=== PATIENT | male | born 1970 | race Caucasian/White ===

== ENCOUNTER 2019-01-14 23:31 | Observation (INO) | payer SELFPAY ==
[~2019-01-14] VITALS: Ht 175.3 cm; Wt 65.4 kg
[2019-01-14] MEDS ORDERED: NS IV 1000 ML 1,000 ML IV STA (23:53)
--- NOTE | 2019-01-14 23:58 | ED Chest Pain ---
General Chief Complaint: Chest Pain Stated Complaint: HYPERTENSION/CHEAT PAIN Nursing Triage Note: Patient states that he began having chest pain about 2 days ago but it has progressively gotten worse the last couple of hours, rating it at a 9. Patient denies radiation and denies that the pain gets worse with coughing or palpation. Patient describes the pain as pressure in nature. Patient had 1 nitro and 50 Fentanyl IM on EMS. Patient denies any relief with those medications. Patient is a poor historian and cannot tell me if he has any cardiac history other than HTN. Nursing Sepsis Screen: No Definite Risk History of Present Illness Date Seen by Provider: January 14, 2019 Time Seen by Provider: 23:44 This is a 48-year-old man who completed to 2 days of constant substernal nonradiating chest pain. He thinks he may have had a stress test at some point in the past but not recently. He says that he is supposed to take 14 medications but he does not know the names, he also states that he doesn't take any of these medications. He does admit a history of diabetes and hypertension. He does smoke cigarettes. He denies any cocaine or other stimulant use. The pain is pressure-like. He is not short of breath. He does not feel lightheaded. He had no relief of his pain with nitroglycerin or fentanyl on the way to the ER as given by EMS. Does have documented hx of hepatic vein thrombosis and rx for xarelto, but denies leg swelling, no hemoptysis, no recent travel or immobilization, no hormonal use. Allergies and Home Medications Allergies Coded Allergies: No Known Drug Allergies (Unverified , 01/14/19) Patient Home Medication List Home Medication List Reviewed: Yes Review of Systems Review of Systems Constitutional: no symptoms reported EENTM: No Symptoms Reported Respiratory: No Symptoms Reported Cardiovascular: See HPI Gastrointestinal: No Symptoms Reported Genitourinary: No Symptoms Reported Musculoskeletal: no symptoms reported Skin: no symptoms reported Psychiatric/Neurological: No Symptoms Reported Endocrine: No Symptoms Reported Hematologic/Lymphatic: No Symptoms Reported Past Vqaeemt-Lbghqq-Gquzqf Hx Past Med/Social Hx: Reviewed Nursing Past Med/Soc Hx Patient Social History Alcohol Use: Occasionally Uses Recreational Drug Use: No Smoking Status: Current Everyday Smoker Type Used: Cigarettes 2nd Hand Smoke Exposure: Yes Recent Foreign Travel: No Contact w/Someone Who Travel: No Recent Infectious Disease Expo: No Recent Hopitalizations: No Physical Abuse: No Sexual Abuse: No Mistreated: No Fear: No Seasonal Allergies Seasonal Allergies: No Past Medical History Surgeries: No Respiratory: No Cardiac: Yes Hypertension Neurological: No Genitourinary: No Gastrointestinal: No Musculoskeletal: No Endocrine: Yes Diabetes, Non-Insulin dep HEENT: No Cancer: No Psychosocial: No Integumentary: No Blood Disorders: No Physical Exam Vital Signs Vital Signs - First Documented 01/14/19 23:31 Temp 98.7 Pulse 67 Resp 22 B/P (MAP) 114/72 (86) Pulse Ox 97 O2 Delivery Room Air Capillary Refill : Less Than 3 Seconds Height, Weight, BMI Height: 5'9.00" Weight: 150lbs. 0oz. [id number]; BMI Method:Stated General Appearance: No Apparent Distress HEENT: Moist Mucous Membranes Neck: Supple; No JVD Respiratory: Lungs Clear Cardiovascular: Regular Rate, Rhythm, No Edema, Normal Peripheral Pulses Gastrointestinal: Non Tender, Soft Extremity: Non Tender Neurologic/Psychiatric: Alert, No Motor/Sensory Deficits Skin: Warm/Dry Progress/Results/Core Measures Results/Orders Lab Results Laboratory Tests Test 01/14/19 23:35 01/15/19 00:46 01/15/19 02:44 01/15/19 03:07 Range/Units White Blood Count 8.8 4.3-11.0 10^3/uL Red Blood Count 4.51 4.35-5.85 10^6/uL Hemoglobin 11.6 L 13.3-17.7 G/DL Hematocrit 36 L 40-54 % Mean Corpuscular Volume 80 80-99 FL Mean Corpuscular Hemoglobin 26 25-34 PG Mean Corpuscular Hemoglobin Concent 32 32-36 G/DL Red Cell Distribution Width 16.2 H 10.0-14.5 % Platelet Count 322 130-400 10^3/uL Mean Platelet Volume 10.4 7.4-10.4 FL Prothrombin Time 12.7 12.2-14.7 SEC INR Comment 0.9 0.8-1.4 Activated Partial Thromboplast Time 29 24-35 SEC Sodium Level 132 L 135-145 MMOL/L Potassium Level 5.2 H 3.6-5.0 MMOL/L Chloride Level 88 L 98-107 MMOL/L Carbon Dioxide Level 20 L 21-32 MMOL/L Anion Gap 24 H 5-14 MMOL/L Blood Urea Nitrogen 9 7-18 MG/DL Creatinine 0.61 0.60-1.30 MG/DL Estimat Glomerular Filtration Rate > 60 BUN/Creatinine Ratio 15 Glucose Level 532 *H 70-105 MG/DL Calcium Level 9.0 8.5-10.1 MG/DL Corrected Calcium 8.8 8.5-10.1 MG/DL Total Bilirubin 0.3 0.1-1.0 MG/DL Aspartate Amino Transf (AST/SGOT) 20 5-34 U/L Alanine Aminotransferase (ALT/SGPT) 20 0-55 U/L Alkaline Phosphatase 132 40-136 U/L Troponin T 6 <=15 NG/L Pro-B-Type Natriuretic Peptide 113.5 H <75.0 PG/ML Total Protein 6.9 6.4-8.2 GM/DL Albumin 4.2 3.2-4.5 GM/DL Glucometer 448 *H 282 H 70-110 MG/DL Urine Color PALE YELLOW Urine Clarity CLEAR Urine pH 6.0 5-9 Urine Specific [place] 1.010 L 1.016-1.022 Urine Protein NEGATIVE NEGATIVE Urine Glucose (UA) 3+ H NEGATIVE Urine Ketones 3+ H NEGATIVE Urine Nitrite NEGATIVE NEGATIVE Urine Bilirubin NEGATIVE NEGATIVE Urine Urobilinogen 0.2 NORMAL MG/DL Urine Leukocyte Esterase NEGATIVE NEGATIVE Urine RBC (Auto) NEGATIVE NEGATIVE My Orders Orders - TOBY DURANT T DO Chest 1 View Ap/Pa Only (01/14/19 23:41) Ekg Tracing (01/14/19 23:41) Comprehensive Metabolic Panel (01/14/19 23:41) Protime With Inr (01/14/19 23:41) Partial Thromboplastin Time (01/14/19 23:41) Monitor-Rhythm Ecg Trace Only (01/14/19 23:41) Ed Iv/Invasive Line Start (01/14/19 23:41) Cbc No Diff (01/14/19 23:41) Troponin T (01/14/19 23:41) Probnp Fs (01/14/19 23:41) Lidocaine 2% Viscous 15 Ml (Xylocaine Vi (01/15/19 00:00) Antacid Suspension (Mylanta Suspension (01/15/19 00:00) Ns Iv 1000 Ml (Sodium Chloride 0.9%) (01/14/19 23:53) Ct Angio Chest W (01/15/19 00:13) Hydromorphone Injection (Dilaudid Inject (01/15/19 00:26) Insulin (Regular) Human (Humulin R (Per (01/15/19 01:56) Iohexol Injection (Omnipaque 350 Mg/Ml 1 (01/15/19 02:15) Received Contrast (Hold Metformin- Contr (01/15/19 02:15) Ns (Ivpb) (Sodium Chloride 0.9% Ivpb Bag (01/15/19 02:15) Urinalysis Dipstick Only (01/15/19 02:39) Fentanyl Injection (Sublimaze Injection (01/15/19 03:29) Medications Given in ED Current Medications Medications Dose Ordered Sig/Yoselin Route Start Time Stop Time Status Last Admin Dose Admin Al Hydrox/Mg Hydrox/Simethicone 30 ml ONCE ONCE PO 01/15/19 00:00 01/15/19 00:01 DC 01/15/19 00:00 30 ML Iohexol 100 ml ONCE ONCE IV 01/15/19 02:15 01/15/19 02:16 DC 01/15/19 02:25 100 ML Lidocaine HCl 30 ml ONCE ONCE PO 01/15/19 00:00 01/15/19 00:01 DC 01/15/19 00:00 30 ML Sodium Chloride 100 ml ONCE ONCE IV 01/15/19 02:15 01/15/19 02:16 DC 01/15/19 02:25 100 ML Vital Signs/I&O 01/14/19 01/14/19 23:31 23:31 Temp 98.7 Pulse 67 Resp 22 B/P (MAP) 114/72 (86) Pulse Ox 97 O2 Delivery Room Air Room Air Blood Pressure Mean: 86 Progress Progress Note : Progress Note This is a 48-year-old man with a history of IDDM, alcohol abuse, hepatic vein thrombosis, candidal esophagitis, noncompliant with his medications, and a listed dx of chronic chest pain, here with 2 days of constant substernal nonradiating chest pain. He had no response to nitroglycerin or fentanyl. He had no improvement w GI cocktail. He says that he only had minimal improvement after 1 mg of IV Dilaudid. I am obtaining CTA of the chest to r/o PE, also will have better sensitivity for mediastinitis than CXR which is grossly negative and can also r/o dissection although his presentation is not particularly suggestive of either of these entities. Lab is having technical issue which is delaying workup for all ED patients, we are attempting to have a install technician bring blood to [facility] for processing. EKG : Comment 2335: Sinus rhythm rate of 66. Left axis deviation. Nonspecific abnormal contour to the T-wave in lead 3, no other ST or T-wave abnormalities. Diagnostic Imaging Diagonstic Imaging: Xray Comments EP interpretation: Trachea is midline, no obvious bony or soft tissue abnormalities, no pneumothoraces or pleural effusions, cardiomediastinal silhouette is within normal limits, there appears to be some increased opacity near the left hilum Reviewed: Reviewed by Me Departure Impression Primary Impression: Chest pain Qualified Codes: R07.2 - Precordial pain Additional Impressions: Noncompliance with medication regimen DKA (diabetic ketoacidosis) Disposition: 09 ADMITTED INPATIENT Condition: Stable Transfer Time Spoke to Accepting Phy: 03:53 Transfer Facility: Dr Eubanks at [facility] Method of Transfer: EMS Departure-Patient Inst. Referrals: NO,LOCAL PHYSICIAN (PCP/Family) Primary Care Physician TOBY DURANT DO January 14, 2019 23:58
[2019-01-15] MEDS ORDERED: ANTACID SUSP 30 ML UDC (MYLANTA) PO ONE
[2019-01-15] MEDS ORDERED: LIDOCAINE 2% VISCOUS 15 ML UDC PO ONE
[2019-01-15 00:22] LABS: HEMOGLOBIN 11.6 G/DL (13.3-17.7); WHITE BLOOD COUNT 8.8 10^3/uL (4.3-11.0)
[2019-01-15 00:23] LABS: MEAN PLATELET VOLUME 10.4 FL (7.4-10.4); RED CELL DISTRIBUTION WIDTH 16.2 % (10.0-14.5)
[2019-01-15 00:24] LABS: INR 0.9 (0.8-1.4); PROTHROMBIN TIME PATIENT 12.7 SEC (12.2-14.7)
[2019-01-15] MEDS ORDERED: HYDROmorphone 2 MG/ML VIAL (DILAUDID) IV STA (00:26)
[2019-01-15 01:37] LABS: BUN/CREATININE RATIO 15; CARBON DIOXIDE 20 MMOL/L (21-32); CHLORIDE 88 MMOL/L (98-107); CREATININE SERUM 0.61 MG/DL (0.60-1.30); GFR ESTIMATED > 60; POTASSIUM 5.2 MMOL/L (3.6-5.0); SODIUM 132 MMOL/L (135-145)
[2019-01-15 01:39] LABS: GLUCOSE 532 MG/DL (70-105)
[2019-01-15 01:40] LABS: ALANINE AMINOTRANSFERASE 20 U/L (0-55); ALBUMIN 4.2 GM/DL (3.2-4.5); ALKALINE PHOSPHATASE 132 U/L (40-136); BILIRUBIN,TOTAL 0.3 MG/DL (0.1-1.0); TOTAL PROTEIN 6.9 GM/DL (6.4-8.2)
[2019-01-15] MEDS ORDERED: inSUlin (REGULAR) HUMAN 1 UNIT/0.01 ML (CHARGE PER UNIT) IV STA (01:56)
[2019-01-15] MEDS ORDERED: IOHEXOL 350 MG/ML 100 ML (OMNIPAQUE 350) VIAL IV ONE (02:15)
[2019-01-15] MEDS ORDERED: NS 100 ML (IVPB) BAG IV ONE (02:15)
[2019-01-15] MEDS ORDERED: HOLD METFORMIN - RECEIVED CONTRAST 20 ML VIAL IV SCH (02:15)
[2019-01-15 02:58] LABS: CLARITY,URINE CLEAR; COLOR,URINE PALE YELLOW
[2019-01-15 02:59] LABS: BILIRUBIN,URINE NEGATIVE (NEGATIVE); GLUCOSE, URINE (UA) 3+ (NEGATIVE); KETONES,URINE 3+ (NEGATIVE); NITRITE,URINE NEGATIVE (NEGATIVE); PROTEIN,URINE NEGATIVE (NEGATIVE); UROBILINOGEN,URINE 0.2 MG/DL (NORMAL)
[2019-01-15 03:00] LABS: LEUKOCYTE ESTERASE ,URINE NEGATIVE (NEGATIVE)
[2019-01-15] MEDS ORDERED: fentaNYL INJECTION 100 MCG/2 ML AMP IVP STA (03:29)
--- NOTE | 2019-01-15 06:05 | NUR ---
JERRY ROBERTS admitted to room 430-1, with an admitting diagnosis of CHEST PAIN AND DKA, on 01/15/19 from [facility] via EMS, accompanied by EMS STAFF.JERRY ROBERTS introduced to surroundings, call light, bed controls, phone, TV, temperature control, lights, meal times, smoking policy, visitor policy, side rail policy, bathrooms and showers. Patient Rights given to patient in the handbook. JERRY ROBERTS verbalizes understanding that [facility] is not responsible for the loss or damage to any personal effects or valuables that are kept in the patients posession during their hospitalization.
[2019-01-15 06:14] VITALS: BP 114/65
--- NOTE | 2019-01-15 06:21 | Diagnostic Imaging Report ---
INDICATION: Chest pain COMPARISON: None FINDINGS: Single view of the chest demonstrates cardiac enlargement with interstitial changes bilaterally. This may represent central vascular congestion or chronic interstitial lung disease. There is some hyperinflation likely COPD. There is no pneumothorax or large effusion. Osseous structures are age-appropriate. IMPRESSION: 1. Cardiac enlargement with mild chronic appearing interstitial changes bilaterally. Followup recommended. 2. COPD Dictated by: Dictated on workstation # [id number]
--- NOTE | 2019-01-15 06:36 | NUR ---
THIS RN CALLED DR. BLACKWELL IN REGARDS TO THE PT REQUESTING MEDICATION FOR CHEST PAIN RATED AT AN 8 ON A NUMERIC SCALE. ORDERS RECEIVED FOR TYLENOL 650 MG PO PRN Q6H. ORDERS READ BACK AND VERIFIED.
[2019-01-15] MEDS: ACETAMINOPHEN 325 MG TABLET PO PRN ×4 (06:46→22:31)
[2019-01-15 07:10] LABS: BASOPHILS # (AUTO) 0.1 10^3/uL (0.0-0.1); BASOPHILS % (AUTO) 1 % (0-10); EOSINOPHILS # (AUTO) 0.3 10^3/uL (0.0-0.3); EOSINOPHILS % (AUTO) 3 % (0-10); HEMATOCRIT 37 % (40-54); HEMOGLOBIN 12.2 G/DL (13.3-17.7); LYMPHOCYTES # (AUTO) 3.2 X 10^3 (1.0-4.0); LYMPHOCYTES % (AUTO) 33 % (12-44); MEAN CORPUSCULAR HEMOGLOBIN 26 PG (25-34); MEAN CORPUSCULAR HGB CONC 33 G/DL (32-36); MEAN CORPUSCULAR VOLUME 78 FL (80-99); MEAN PLATELET VOLUME 10.1 FL (7.4-10.4); MONOCYTES # (AUTO) 0.6 X 10^3 (0.0-1.0); MONOCYTES % (AUTO) 7 % (0-12); NEUTROPHILS # (AUTO) 5.5 X 10^3 (1.8-7.8); NEUTROPHILS % (AUTO) 57 % (42-75); PLATELET COUNT 288 10^3/uL (130-400); RED CELL DISTRIBUTION WIDTH 16.7 % (10.0-14.5); WHITE BLOOD COUNT 9.7 10^3/uL (4.3-11.0)
[2019-01-15] MEDS: NS IV 1000 ML 1,000 ML IV SCH ×2 (07:28→15:47)
--- NOTE | 2019-01-15 07:32 | Diagnostic Imaging Report ---
PROCEDURE: CT angiography of the chest with contrast. TECHNIQUE: Multiple contiguous axial images were obtained through the chest after uneventful bolus administration of intravenous contrast. 2D reconstructed CTA MIP acquisitions were also performed. Auto Exposure Controls were utilized during the CT exam to meet ALARA standards for radiation dose reduction. INDICATION: Shortness of breath. COMPARISON: None. FINDINGS: The heart size is normal. The course and caliber of the thoracic aorta and pulmonary arteries is normal. There is no pulmonary embolism. There is advanced centrilobular and paraseptal emphysema. Chronic interstitial changes are seen in both bases. No focal infiltrate, nodule or mass is identified. There are some prominent lymph nodes in the hilum bilaterally, likely reactive. There is some abnormal thickening of the mid and distal esophagus. Consider direct visualization. There is no pneumothorax or effusion. Osseous structures are age-appropriate. Visualized upper abdominal solid organs are intact. There are chronic calcific changes of the pancreas, likely chronic pancreatitis. IMPRESSION: 1. No pulmonary embolism identified. 2. Abnormal thickening of the mid and distal esophagus. Consider direct visualization. 3. Advanced centrilobular and paraseptal emphysema. 4. Chronic calcific pancreatitis. Dictated by: Dictated on workstation # [id number]
[2019-01-15 07:34] LABS: ALANINE AMINOTRANSFERASE 24 U/L (0-55); ALBUMIN 3.9 GM/DL (3.2-4.5); ALKALINE PHOSPHATASE 131 U/L (40-136); BILIRUBIN,TOTAL 0.3 MG/DL (0.1-1.0); BUN/CREATININE RATIO 9; CALCIUM 9.2 MG/DL (8.5-10.1); CARBON DIOXIDE 18 MMOL/L (21-32); CHLORIDE 100 MMOL/L (98-107); CREATININE SERUM 0.92 MG/DL (0.60-1.30); GFR ESTIMATED > 60; GLUCOSE 243 MG/DL (70-105); MAGNESIUM 2.1 MG/DL (1.8-2.4); POTASSIUM 3.9 MMOL/L (3.6-5.0); SODIUM 134 MMOL/L (135-145); TOTAL PROTEIN 6.7 GM/DL (6.4-8.2)
[2019-01-15] MEDS: NITROGLYCERIN 0.4 MG SL TABS BTL 25'S SL PRN ×2 (07:38→11:33)
[2019-01-15 07:42] LABS: ABG BASE EXCESS -0.4 MMOL/L (-2.5-2.5); ABG OXYGEN SATURATION 22 % (94-100); ABG PCO2 47 MMHG (35-45); ABG TCO2 26.1 MMOL/L (21.0-31.0)
[2019-01-15 07:46] LABS: ABG PH 7.34 (7.37-7.43); ABG PO2 19 MMHG (79-93); ALLENS TEST YES-POS; INSPIRED O2 ROOM AIR; PATIENT TEMP 98.4; VENTILATOR NO
[2019-01-15 08:16] VITALS: BP 126/78
[2019-01-15] MEDS: fentaNYL INJECTION 100 MCG/2 ML AMP IVP PRN ×3 (08:17→19:33)
--- NOTE | 2019-01-15 09:28 | NUR ---
PATIENT STATES HE IS SUPPOSED TO TAKE 14 MEDICATIONS BUT HAS NOT TAKEN THEM FOR A FEW MONTHS DUE TO NOT BEING ABLE TO GET THEM. HE STATES HE GOT THEM AT SOME [facility] BUT HE CAN'T REMEMBER. I ASKED WHAT PHARMACY HE WOULD LIKE TO USE GOING [place]WARD AND HE STATES IT DOESN'T MATTER BECAUSE HE CAN NOT GET MEDS, HE IS NOT FAMILIAR WITH [facility] AND STATES HE DOES NOT EVEN KNOW [facility]. I SET THE PROFILE TO NO MEDS AND LEFT THE PHARMACY BLANK FOR NOW.
[2019-01-15] MEDS ORDERED: PANTOPRAZOLE 40 MG (PROTONIX) TAB PO NR (10:00)
--- NOTE | 2019-01-15 10:25 | Consultation-Cardiology ---
HPI-Cardiology Cardiology Consultation Date of Consultation 01/15/19 Date of Admission Time Seen by Provider: 10:20 Indication: chest pain HPI 48 years old gentleman with history of diabetes mellitus, hypertension, tobaccoism, noncompliant with medication, reported that he is supposed to be taking up to 14 medication but does not take any medication because he cannot afford it and he does not follow up with any physician. Has been having chest pain which has been persistent for few weeks, became worse recently and went to [facility] and was transferred here, pain did not relieve with nitroglycerin, felt better after fentanyl. Still having discomfort in his chest, not reproducible. No palpitation. No syncope or near syncopal episodes. No claudication. Home Medications & Allergies Allergies: Coded Allergies: No Known Drug Allergies (Unverified , 01/14/19) Home Medication List Reviewed: Yes [id number]-Mpwgtz Hx Patient Social History Marital Status: single Employed/Student: unemployed Alcohol Use: Occasionally Uses Recreational Drug Use: No Smoking Status: Current Everyday Smoker Type Used: Cigarettes 2nd Hand Smoke Exposure: Yes Recent Foreign Travel: No Recent Infectious Disease Expo: No Recent Hopitalizations: No Past Medical History Discussed below Family Medical History Family Medical Hx Noncontributory Review of Systems Constitutional: no symptoms reported, see HPI EENTM: see HPI, no symptoms reported Respiratory: see HPI; No cough; dyspnea on exertion; No hemoptysis, No orthopnea, No phlegm, No short of breath, No stridor, No wheezing, No other Cardiovascular: see HPI, chest pain; No edema, No Hx of Intervention, No palpitations, No syncope, No vascular heart diseas, No other Gastrointestinal: see HPI, abdominal pain Genitourinary: no symptoms reported, see HPI Musculoskeletal: no symptoms reported, see HPI Skin: no symptoms reported, see HPI Psychiatric/Neurological: No Symptoms Reported, See HPI Reviewed Test Results Reviewed Test Results Lab Laboratory Tests Test 01/14/19 23:35 01/15/19 00:46 01/15/19 02:44 01/15/19 03:07 Range/Units White Blood Count 8.8 4.3-11.0 10^3/uL Red Blood Count 4.51 4.35-5.85 10^6/uL Hemoglobin 11.6 L 13.3-17.7 G/DL Hematocrit 36 L 40-54 % Mean Corpuscular Volume 80 80-99 FL Mean Corpuscular Hemoglobin 26 25-34 PG Mean Corpuscular Hemoglobin Concent 32 32-36 G/DL Red Cell Distribution Width 16.2 H 10.0-14.5 % Platelet Count 322 130-400 10^3/uL Mean Platelet Volume 10.4 7.4-10.4 FL Prothrombin Time 12.7 12.2-14.7 SEC INR Comment 0.9 0.8-1.4 Activated Partial Thromboplast Time 29 24-35 SEC Sodium Level 132 L 135-145 MMOL/L Potassium Level 5.2 H 3.6-5.0 MMOL/L Chloride Level 88 L 98-107 MMOL/L Carbon Dioxide Level 20 L 21-32 MMOL/L Anion Gap 24 H 5-14 MMOL/L Blood Urea Nitrogen 9 7-18 MG/DL Creatinine 0.61 0.60-1.30 MG/DL Estimat Glomerular Filtration Rate > 60 BUN/Creatinine Ratio 15 Glucose Level 532 *H 70-105 MG/DL Calcium Level 9.0 8.5-10.1 MG/DL Corrected Calcium 8.8 8.5-10.1 MG/DL Total Bilirubin 0.3 0.1-1.0 MG/DL Aspartate Amino Transf (AST/SGOT) 20 5-34 U/L Alanine Aminotransferase (ALT/SGPT) 20 0-55 U/L Alkaline Phosphatase 132 40-136 U/L Troponin T 6 <=15 NG/L Pro-B-Type Natriuretic Peptide 113.5 H <75.0 PG/ML Total Protein 6.9 6.4-8.2 GM/DL Albumin 4.2 3.2-4.5 GM/DL Glucometer 448 *H 282 H 70-110 MG/DL Urine Color PALE YELLOW Urine Clarity CLEAR Urine pH 6.0 5-9 Urine Specific [place] 1.010 L 1.016-1.022 Urine Protein NEGATIVE NEGATIVE Urine Glucose (UA) 3+ H NEGATIVE Urine Ketones 3+ H NEGATIVE Urine Nitrite NEGATIVE NEGATIVE Urine Bilirubin NEGATIVE NEGATIVE Urine Urobilinogen 0.2 NORMAL MG/DL Urine Leukocyte Esterase NEGATIVE NEGATIVE Urine RBC (Auto) NEGATIVE NEGATIVE Test 01/15/19 06:54 01/15/19 07:35 01/15/19 09:05 Range/Units White Blood Count 9.7 4.3-11.0 10^3/uL Red Blood Count 4.73 4.35-5.85 10^6/uL Hemoglobin 12.2 L 13.3-17.7 G/DL Hematocrit 37 L 40-54 % Mean Corpuscular Volume 78 L 80-99 FL Mean Corpuscular Hemoglobin 26 25-34 PG Mean Corpuscular Hemoglobin Concent 33 32-36 G/DL Red Cell Distribution Width 16.7 H 10.0-14.5 % Platelet Count 288 130-400 10^3/uL Mean Platelet Volume 10.1 7.4-10.4 FL Neutrophils (%) (Auto) 57 42-75 % Lymphocytes (%) (Auto) 33 12-44 % Monocytes (%) (Auto) 7 0-12 % Eosinophils (%) (Auto) 3 0-10 % Basophils (%) (Auto) 1 0-10 % Neutrophils # (Auto) 5.5 1.8-7.8 X 10^3 Lymphocytes # (Auto) 3.2 1.0-4.0 X 10^3 Monocytes # (Auto) 0.6 0.0-1.0 X 10^3 Eosinophils # (Auto) 0.3 0.0-0.3 10^3/uL Basophils # (Auto) 0.1 0.0-0.1 10^3/uL Sodium Level 134 L 135-145 MMOL/L Potassium Level 3.9 3.6-5.0 MMOL/L Chloride Level 100 98-107 MMOL/L Carbon Dioxide Level 18 L 21-32 MMOL/L Anion Gap 16 H 5-14 MMOL/L Blood Urea Nitrogen 8 7-18 MG/DL Creatinine 0.92 0.60-1.30 MG/DL Estimat Glomerular Filtration Rate > 60 BUN/Creatinine Ratio 9 Glucose Level 243 H 70-105 MG/DL Calcium Level 9.2 8.5-10.1 MG/DL Corrected Calcium 9.3 8.5-10.1 MG/DL Magnesium Level 2.1 1.8-2.4 MG/DL Total Bilirubin 0.3 0.1-1.0 MG/DL Aspartate Amino Transf (AST/SGOT) 19 5-34 U/L Alanine Aminotransferase (ALT/SGPT) 24 0-55 U/L Alkaline Phosphatase 131 40-136 U/L Troponin I < 0.028 < 0.028 <0.028 NG/ML Total Protein 6.7 6.4-8.2 GM/DL Albumin 3.9 3.2-4.5 GM/DL Blood Gas Puncture Site R BRACHIAL Blood Gas Patient Temperature 98.4 Arterial Blood pH 7.34 *L 7.37-7.43 Arterial Blood Partial Pressure CO2 47 H 35-45 MMHG Arterial Blood Partial Pressure O2 19 *L 79-93 MMHG Arterial Blood HCO3 25 23-27 MMOL/L Arterial Blood Total CO2 26.1 21.0-31.0 MMOL/L Arterial Blood Oxygen Saturation 22 L 94-100 % Arterial Blood Base Excess -0.4 -2.5-2.5 MMOL/L Aiden Test YES-POS Blood Gas Ventilator Setting NO Blood Gas Inspired Oxygen ROOM AIR Physical Exam Vital Signs Vital Signs - First Documented 01/14/19 01/15/19 23:31 08:16 Temp 98.7 Pulse 67 Resp 22 B/P (MAP) 114/72 (86) Pulse Ox 97 O2 Delivery Room Air O2 Flow Rate 0.00 Capillary Refill : Less Than 3 Seconds Height, Weight, BMI Height: 5'9.00" Weight: 144lbs. 2.0oz. 65.756830sq; 21.2 BMI Method:Stated General Appearance: No Apparent Distress, WD/WN Eyes: Bilateral Eye Normal Inspection, Bilateral Eye PERRL, Bilateral Eye EOMI HEENT: PERRL/EOMI, TMs Normal, Normal ENT Inspection, Pharynx Normal Neck: Full Range of Motion, Normal Inspection, Non Tender, Supple, Carotid Bruit Respiratory: Chest Non Tender, Lungs Clear, Normal Breath Sounds, No Accessory Muscle Use, No Respiratory Distress Cardiovascular: Regular Rate, Rhythm, No Edema, No Gallop, No JVD, No Murmur, Normal Peripheral Pulses Gastrointestinal: Normal Bowel Sounds, No Organomegaly, No Pulsatile Mass, Non Tender, Soft Back: Normal Inspection, No CVA Tenderness, No Vertebral Tenderness Extremity: Normal Capillary Refill, Normal Inspection, Normal Range of Motion, Non Tender, No Calf Tenderness, No Pedal Edema Neurologic/Psychiatric: Alert, Oriented x3, No Motor/Sensory Deficits, Normal Mood/Affect Skin: Normal Color, Warm/Dry Lymphatic: No Adenopathy A/P-Cardiology Admission Diagnosis Chest pain DKA Hypertension Tobaccoism Assessment/Plan Chest pain nonspecific etiology, atypical in presentation, unlikely to be cardiac, responsive only to fentanyl. No EKG changes, cardiac enzymes were negative. I reassured him at this time, instructed him on starting aspirin and planning to evaluate stress test as an outpatient. Diabetes mellitus, DKA, blood sugar was over 400 on arrival, currently around 200, managed by primary care physician. Tobaccoism, active smoker, educated on smoking cessation Occasional alcohol use, educated on avoiding alcohol History of marijuana use. Educated on avoiding illicit drug use. Hypertension, patient does not take any medication at home and blood pressure is better at this point. Continue to monitor Musculoskeletal pain, generalized body ache Noncompliance with medication Clinical Quality Measures DVT/VTE Risk/Contraindication: Risk Factor Score Per Nursin RFS Level Per Nursing on Admit: 3=High ANCA CALLOWAY MD January 15, 2019 10:25
[2019-01-15] MEDS ORDERED: inSUlin ASPART (NovoLOG) 1 UNIT/0.01 ML (CHARGE PER UNIT) SC SCH ×2 (11:30→15:45)
[2019-01-15] MEDS ORDERED: inSUlin ASPART (NovoLOG) 1 UNIT/0.01 ML (CHARGE PER UNIT) SC ONE (11:45)
[2019-01-15 12:00] VITALS: BP 127/86
--- NOTE | 2019-01-15 12:02 | NUR ---
PT. CONT. TO C/O OF CHEST PAIN IN MIDDLE CHEST. STATES " THE NITROGLYCERIN DOES NOT HELP." TYLENOL GIVEN PO FOR CONT. PAIN.
--- NOTE | 2019-01-15 12:49 | History & Physical-Hospitalist ---
History of Present Illness HPI/Chief Complaint The patient is a 48-year-old white male from the [facility]. He presented at the [facility] emergency room. He presented with complaints of a 2 day constant nonradiating chest pain. He reported this came while he was sitting watching TV. It had gotten worse and finally caused him to seek attention by calling the ambulance. He is a very poor or indifferent historian. He has not taken medications in several months. He states that he took 13 or 14 medications previously. He states that he obtained these at discharge from hospitalizations and multiple [facility] facilities including [facility]. He has a history of diabetes and hypertension. He previously used alcohol. He has had several episodes of pancreatitis during the time he was drinking. This goes back a couple of years. 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 He has also been on insulin but has run out of this as well. He reports that his glucometer readings have been consistently in the 500 range. Date Seen 01/15/19 Time Seen by a Provider: 12:45 Attending Physician Elizabeth Eubanks MD PCP No,Local Physician Referring Physician Date of Admission January 15, 2019 at 04:12 Home Medications & Allergies Home Medications Reviewed patient Home Medication Reconciliation performed by pharmacy medication reconciliations electromechanical technician and/or nursing. Patients Allergies have been reviewed. Allergies Allergies Coded Allergies No Known Drug Allergies (Unverified01/14/19) Past Wbxvlsg-Cimlfk-Himpwj Hx Past Med/Social Hx: Reviewed Nursing Past Med/Soc Hx Patient Social History Marrital Status: single Employed/Student: unemployed Alcohol Use: Occasionally Uses Recreational Drug Use: No Smoking Status: Current Everyday Smoker Type Used: Cigarettes 2nd Hand Smoke Exposure: Yes Recent Foreign Travel: No Contact w/other who traveled: No Recent Hopitalizations: No Recent Infectious Disease Expo: No Seasonal Allergies Seasonal Allergies: No Past Medical History Cardiac: Hypertension Neurological: Headaches /Migraines Genitourinary: Renal Failure Gastrointestinal: Gastroesophageal Reflux, Quezada's Esophagus, Pancreatitis Endocrine: Diabetes, Non-Insulin dep History of Blood Disorders: No Review of Systems Constitutional: see HPI EENTM: no symptoms reported Respiratory: cough, dyspnea on exertion Cardiovascular: see HPI, chest pain Gastrointestinal: no symptoms reported Genitourinary: no symptoms reported Musculoskeletal: no symptoms reported Psychiatric/Neurological: No Symptoms Reported, Depressed Physical Exam Physical Exam Vital Signs Vital Signs - First Documented 01/14/19 01/15/19 23:31 08:16 Temp 98.7 Pulse 67 Resp 22 B/P (MAP) 114/72 (86) Pulse Ox 97 O2 Delivery Room Air O2 Flow Rate 0.00 Capillary Refill : Less Than 3 Seconds Height, Weight, BMI Height: 5'9.00" Weight: 144lbs. 2.0oz. [id number]; 21.2 BMI Method:Stated General Appearance: Mild Distress Eyes: Bilateral Eye Normal Inspection HEENT: Normal ENT Inspection Neck: Full Range of Motion, Normal Inspection, Non Tender Respiratory: Chest Non Tender, Lungs Clear, Normal Breath Sounds, No Accessory Muscle Use, No Respiratory Distress Cardiovascular: Regular Rate, Rhythm, No Edema, No Gallop, No JVD, No Murmur, Normal Peripheral Pulses Gastrointestinal: Normal Bowel Sounds, No Organomegaly, No Pulsatile Mass Back: Normal Inspection Extremity: Normal Capillary Refill, Normal Inspection, Normal Range of Motion Neurologic/Psychiatric: Alert, Oriented x3, No Motor/Sensory Deficits, Normal Mood/Affect Skin: Normal Color, Warm/Dry Lymphatic: No Adenopathy Results Results/Procedures Labs Laboratory Tests 01/14/19 23:35 01/15/19 06:54 Patient resulted labs reviewed. Assessment/Plan Admission Diagnosis Admission Status: Observation Assessment and Plan Chest pain atypical for myocardium. 2.untreated diabetes. 3.untreated hypertension. 4.minimum personal involvement in disease treatment Clinical Quality Measures DVT/VTE Risk/Contraindication: Risk Factor Score Per Nursin RFS Level Per Nursing on Admit: 3=High MICAH SHAHID MD January 15, 2019 12:49
--- NOTE | 2019-01-15 13:21 | NUR ---
CM/SS, respond to consult. Rx: Plan is to assist patient for priority Rx with both 340b and PALS assistance. Patient has agreed to get established with [facility] in [place] and unit RN has made his first followup appointment. SUMMARY: Patient was difficult to engage, he told RN he had talked to too many people already and didn't want to talk anymore. Very edgy and sharp with responses so television script writer kept conversation brief. EMR reflects noncompliance to all Rx and suspicion of noncompliance in general to any healthcare assessments or recommendations. Patient stated he got Rx about 3 months ago from the last hospital he was in and he could not recall which hospital it was. He also indicated he has presented to several different hospitals in the recent months. Following for discharge, tentatively tomorrow. Patient indicated he had no ride home, he was encouraged to begin making contacts today for his ride home tomorrow. Unit RN updated intermittently.
[2019-01-15] MEDS ORDERED: INSU100I29 SQ (13:38)
[2019-01-15] MEDS ORDERED: INSU100I14 SQ (13:38)
[2019-01-15 15:57] VITALS: BP 117/75
[2019-01-15] MEDS ORDERED: inSUlin (REGULAR) HUMAN 1 UNIT/0.01 ML (CHARGE PER UNIT) ONE (17:09)
[2019-01-15] MEDS ORDERED: KETOROLAC 30 MG/ML VIAL ONE (17:09)
[2019-01-15] MEDS: KETOROLAC 30 MG/ML VIAL IVP PRN ×2 (17:14→23:21)
[2019-01-15] MEDS: inSUlin ASPART (NovoLOG) 1 UNIT/0.01 ML (CHARGE PER UNIT) SC SCH ×2 (17:14→22:02)
[2019-01-15 20:02] VITALS: BP 115/71
--- NOTE | 2019-01-15 22:54 | NUR ---
PT COMPLAINING OF PAIN RATING IT 9 OUT OF 10[address] SPOKE WITH [address]. SHAHID. TELEPHONE ORDERS RECIEVED FOR MYLANTA 30ML Q4HRS PRN FOR PAIN. WILL CARRY OUT ORDERS AND CONTINUE TO MONITOR PT.
[2019-01-16] VITALS: BP 113/68
[2019-01-16] MEDS: ANTACID SUSP 30 ML UDC (MYLANTA) PO PRN ×3 (01:36→11:08)
[2019-01-16] MEDS: fentaNYL INJECTION 100 MCG/2 ML AMP IVP PRN ×3 (01:37→13:16)
[2019-01-16] MEDS: NICOTINE 21 MG (NICODERM) PATCH TD SCH ×2 (03:45→08:07)
[2019-01-16 04:48] VITALS: BP 110/71
[2019-01-16 05:40] LABS: BASOPHILS % (AUTO) 1 % (0-10); EOSINOPHILS # (AUTO) 0.3 10^3/uL (0.0-0.3); EOSINOPHILS % (AUTO) 4 % (0-10); HEMATOCRIT 34 % (40-54); HEMOGLOBIN 11.2 G/DL (13.3-17.7); LYMPHOCYTES # (AUTO) 2.7 X 10^3 (1.0-4.0); LYMPHOCYTES % (AUTO) 42 % (12-44); MEAN CORPUSCULAR HEMOGLOBIN 25 PG (25-34); MEAN CORPUSCULAR HGB CONC 33 G/DL (32-36); MEAN CORPUSCULAR VOLUME 77 FL (80-99); MONOCYTES # (AUTO) 0.7 X 10^3 (0.0-1.0); MONOCYTES % (AUTO) 10 % (0-12); NEUTROPHILS # (AUTO) 2.9 X 10^3 (1.8-7.8); NEUTROPHILS % (AUTO) 44 % (42-75); PLATELET COUNT 252 10^3/uL (130-400); RED CELL DISTRIBUTION WIDTH 16.6 % (10.0-14.5); WHITE BLOOD COUNT 6.6 10^3/uL (4.3-11.0)
[2019-01-16 06:02] LABS: ALANINE AMINOTRANSFERASE 27 U/L (0-55); ALBUMIN 3.5 GM/DL (3.2-4.5); ALKALINE PHOSPHATASE 111 U/L (40-136); BILIRUBIN,TOTAL 0.2 MG/DL (0.1-1.0); BUN/CREATININE RATIO 24; CALCIUM 9.1 MG/DL (8.5-10.1); CARBON DIOXIDE 22 MMOL/L (21-32); CHLORIDE 101 MMOL/L (98-107); GFR ESTIMATED > 60; GLUCOSE 262 MG/DL (70-105); POTASSIUM 4.4 MMOL/L (3.6-5.0); SODIUM 134 MMOL/L (135-145); TOTAL PROTEIN 5.6 GM/DL (6.4-8.2)
[2019-01-16] MEDS: inSUlin ASPART (NovoLOG) 1 UNIT/0.01 ML (CHARGE PER UNIT) SC SCH ×4 (06:43→11:53)
[2019-01-16] MEDS: KETOROLAC 30 MG/ML VIAL IVP PRN ×2 (06:43→12:17)
[2019-01-16 08:00] VITALS: BP 126/82
--- NOTE | 2019-01-16 08:51 | Cardiology Progress Note ---
Subjective Date Seen by Provider: January 16, 2019 Time Seen by Provider: 08:50 Subjective/Events-last exam patient is still having generalized pain and persistent chest pain Review of Systems General: No Chills, No Night Sweats, No Fatigue, No Malaise, No Appetite, No Other HEENT: No Head Aches, No Visual Changes, No Eye Pain, No Ear Pain, No Dysphasia, No Sinus Congestion, No Post Nasal Drip, No Sore Throat, No Other Pulmonary: No Dyspnea, No Cough, No Pleuritic Chest Pain, No Other Cardiovascular: Chest Pain; No: Palpitations, Orthopnea, Paroxysmal Noc. Dyspnea, Edema, Lt Headedness, Other Objective-Cardiology Exam Last Set of Vital Signs Vital Signs Capillary Refill : Less Than 3 Seconds I&O Intake and Output 01/16/19 00:00 Intake Total 5170 ml Output Total 900 ml Balance 4270 ml Intake Oral 3170 ml IV Total 2000 ml Output Urine Total 900 ml # Voids 8 # Bowel Movements 1 Daily Weight Change No No General: Alert, Oriented X3, Cooperative HEENT: Atraumatic, PERRLA Neck: Supple, No JVD, No Thyromegaly Lungs: Clear to Auscultation, Normal Air Movement Heart: Regular Rate, Normal S1, Normal S2, No Murmurs Abdomen: Normal Bowel Sounds, Soft, No Tenderness, No Hepatosplenomegaly, No Masses Extremities: No Clubbing, No Cyanosis, No Edema, Normal Pulses, No Tenderness/Swelling Skin: No Rashes, No Breakdown, No Significant Lesion Neuro: Normal Gait, Normal Speech, Strength at 5/5 X4 Ext, Normal Tone, Sensation Intact Psych/Mental Status: Mental Status NL, Mood NL Results Lab Laboratory Tests 01/16/19 05:20 A/P-Cardiology Admission Diagnosis Chest pain DKA Hypertension Tobaccoism Assessment/Plan Chest pain nonspecific etiology, atypical in presentation, unlikely to be cardiac, responsive only to fentanyl. No EKG changes, cardiac enzymes were negative. I reassured him at this time, instructed him on starting aspirin and planning to evaluate stress test as an outpatient. Diabetes mellitus, DKA, blood sugar was over 400 on arrival, currently around 200, managed by primary care physician. Tobaccoism, active smoker, educated on smoking cessation Occasional alcohol use, educated on avoiding alcohol History of marijuana use. Educated on avoiding illicit drug use. Hypertension, patient does not take any medication at home and blood pressure is better at this point. Continue to monitor Musculoskeletal pain, generalized body ache Noncompliance with medication Clinical Quality Measures DVT/VTE Risk/Contraindication: Risk Factor Score Per Nursin RFS Level Per Nursing on Admit: 3=High ANCA CALLOWAY MD January 16, 2019 08:51
[2019-01-16] MEDS ORDERED: ASPIRIN E.C. 81 MG (ECOTRIN) TAB PO SCH (09:00)
[2019-01-16] MEDS ORDERED: PANTOPRAZOLE 40 MG (PROTONIX) TAB PO SCH (09:00)
[2019-01-16] MEDS: ACETAMINOPHEN 325 MG TABLET PO PRN (11:10)
[2019-01-16 12:43] VITALS: BP 131/80
--- NOTE | 2019-01-16 13:05 | Progress Note-Hospitalist ---
Progress Note Progress Notes/Assess & Plan Date Seen 01/16/19 Time Seen by Provider: 12:59 Assessment & Plan The patient now complains of pain in his belly unlike the chest pain described yesterday. He continues to report that he has been in many regional hospitals over the last 2 years but no one has been able to define his illness. He states he just keeps getting worse. We certainly have no inkling of an illness that would support his analgesic needs. Physical exam: Lungs are clear to auscultation. CV is regular without murmur. Abdomen is soft without pain to palpation. Vital signs are stable. Cardiology has assured that they find no evidence of cardiac disease to explain his pain. Arrangements have been made for transportation including a travel voucher. Arrangements have been made by clinical pharmacology for him to get discounted basil and rapid acting insulin prescriptions. He has an appointment for [facility] tomorrow. Impression: Stated chest pain. No evidence of acute cardiac disease. 2.diabetes mellitus type II insulin requiring. 3.hypertension. Note: the patient is taking none of these medications and has not for some period of time. Plan: Discharge. He is to reestablish management of hypertension and diabetes on the outpatient basis. MICAH SHAHID MD January 16, 2019 13:05
--- NOTE | 2019-01-16 13:25 | Discharge Inst-Simple/Standard ---
Discharge Inst-Standard Discharge Medications New, Converted or Re-Newed RX: Transmitted to Pharmacy Patient Instructions/Follow Up Plan of Care/Instructions/FU: Your insulin order has been E scribed to [facility]. A clinic appointment has been scheduled tomorrow at [facility]. They will need to arrange any pain medications for you. Activity as Tolerated: Yes Goal: Better control of blood pressure, blood sugars, and pain Discharge Diet: ADA Diet Planned Outpatient Orders/Ref. Pneu Vac Indicated: Yes MICAH SHAHID MD January 16, 2019 13:25
[2019-01-16 16:00] VITALS: BP 131/80
--- NOTE | 2019-01-16 16:00 | NUR ---
JERRY ROBERTS demonstrates understanding of discharge instructions and accurately returns instructions upon questioning. Copy of Post-Discharge Instructions given to PT. JERRY ROBERTS is able to manage continuing needs after discharge. Patients belongings returned to PT. Patient discharged from [facility] on 01/16/19 at 1600. JERRY ROBERTS left floor via AMBULATORY, accompanied by STAFF AND ROADWAY TECHNICIAN PER VOUCHER AND SENT TO [facility] WITH VOUCHER FOR MEDICATIONS BEFORE GOING HOME.
--- NOTE | 2019-01-16 16:34 | NUR ---
CM DISCHARGE PLANNING: Patient is dismissing to home today self care. He has indicated that he can not afford his medication et PALS voucher was completed with him so that he can obtain his medications from [facility] at no charge to the patient. He also indicated that he has no support systems at home et will not have a ride to pick him up to go back to [place]. This nurse completed the taxi voucher et had the patient sign. I contacted the taxi service et they confirmed that they will be able to transport to [place]. Primary care nurse Shani notified of above information et Automotive Service AssistantClerk Silverman also aware so that she can call the taxi service when Shani is ready.
--- NOTE | 2019-01-16 17:04 | NUR ---
Pt states he has been in chronic pain for four years and feels that he may "end his own pain" if no one else can give him relief. Pt said he might drop off his dog with his sister, pack a bag and drive away. Pt did not describe a means for harming himself. Offered empathic listening and facilitated free expression of thoughts and feelings. Provided safe and non-judgmental space.
--- NOTE | 2019-01-16 17:11 | NUR ---
Pt states he does not have insurance or financial means to be compliant with medications.
== END 2019-01-16 13:23 | disposition home or self-care (01) ==
LOC: ER FS 23:35 → 4TH 23:36 → UNDOADMOB 01-15 04:12 → UNDODISOB 01-16 16:00
PROVIDERS: ADMIT Internal Medicine; ATTEND Internal Medicine
DX: R07.89 Other chest pain (principal); E11.10 Type 2 diabetes mellitus with ketoacidosis without coma; I10 Essential (primary) hypertension; Z79.4 Long term (current) use of insulin; F17.210 Nicotine dependence, cigarettes, uncomplicated; M79.10 Myalgia, unspecified site; K21.9 Gastro-esophageal reflux disease without esophagitis; K22.70 Barrett's esophagus without dysplasia; Z86.718 Personal history of other venous thrombosis and embolism; Z91.19 Patient's noncompliance with other medical treatment and regimen
CPT/HCPCS: 36415; 36600; 71045; 71275; 80053; 81002; 82805; 82962; 83690; 83735; 83880; 84484; 85025; 85027; 85610; 85730; 93005; 93041; 93306; 96361; 96374; 96375; G0378

== ENCOUNTER 2019-11-22 07:37 | Inpatient (IN) | payer SELFPAY ==
[~2019-11-22] VITALS: Ht 175 cm; Wt 62.9 kg
[~2019-11-22 07:37] MED LIST: INSU100I14 SQ; INSU100I29 SQ
--- OUTSIDE RECORDS SUMMARY | 2019-11-22 07:44 | XMS REPORT | Continuity of Care Document ---
Author Organization Unknown Address Unknown Phone Unavailable Allergies Active Description Code Type Severity Reaction Onset Reported/Identified Relationship to Patient Clinical Status Yes No Known Drug Allergies [id number] Drug Allergy Unknown N/A 01/14/2019 Medications There is no data. Problems Date Dx Coded Attending Type Code Diagnosis Diagnosed By 01/16/2019 SILVIA BLACKWELL MD, Ot E11.10 TYPE 2 DIABETES MELLITUS WITH KETOACIDOS 01/16/2019 SILVIA BLACKWELL MD, Ot F17.210 NICOTINE DEPENDENCE, CIGARETTES, UNCOMPL 01/16/2019 SILVIA BLACKWELL MD, Ot I10 ESSENTIAL (PRIMARY) HYPERTENSION 01/16/2019 SILVIA BLACKWELL MD, Ot K21.9 GASTRO-ESOPHAGEAL REFLUX DISEASE WITHOUT 01/16/2019 SILVIA BLACKWELL MD, Ot K22.70 STOCK'S ESOPHAGUS WITHOUT DYSPLASIA 01/16/2019 SILVIA BLACKWELL MD, Ot M79.10 MYALGIA, UNSPECIFIED SITE 01/16/2019 SILVIA BLACKWELL MD, Ot R07.89 OTHER CHEST PAIN 01/16/2019 SILVIA BLACKWELL MD, Ot Z79.4 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 Procedures There is no data. Results Test Result Range Automated blood complete blood count (he mogram) panel - 01/14/19 23:35 Blood leukocytes automated count (number/volume) 8.8 10*3/uL 4.3-11.0 Blood erythrocytes automated count (number/volume) 4.51 10*6/uL 4.35-5.85 Venous blood hemoglobin measurement (mass/volume) 11.6 g/dL 13.3-17.7 Blood hematocrit (volume fraction) 36 % 40-54 Automated erythrocyte mean corpuscular volume 80 [ foz_us] 80-99 Automated erythrocyte mean corpuscular h emoglobin (mass per erythrocyte) 26 pg 25-34 Automated erythrocyte mean corpuscular h emoglobin concentration measurement (mass/volume) 32 g/dL 32-36 Automated erythrocyte distribution width ratio 16. 2 % 10.0- 14.5 Automated blood platelet count (count/volume) 322 10*3/uL 130-400 Automated blood platelet mean volume measurement 10.4 [foz_us] 7.4-10.4 PT panel in platelet poor plasma by coag ulation assay - 01/14/19 23:35 Prothrombin time (PT) in platelet poor plasma by coagu lation assay 12.7 s 12.2-14.7 INR in platelet poor plasma or blood by coagulation as say 0.9 0.8-1.4 Activated partial thromboplastin time (a PTT) in platelet poor plasma bycoagulation assay - 01/14/19 23:35 Activated partial thromboplastin time (a PTT) in platelet poor plasma bycoagulation assay 29 s 24-35 TROPONIN T - 01/14/19 23:35 TROPONIN T 6 % <=15 PROBNP FS - 01/14/19 23:35 PROBNP FS 113.5 pg/mL <75.0 Comprehensive metabolic panel - 01/14/19 23:35 Serum or plasma sodium measurement (moles/volume) 132 mmol/L 135-145 Serum or plasma potassium measurement (moles/volume) 5.2 mmol/L 3.6-5.0 Serum or plasma chloride measurement (moles/volume) 88 mmol/L 98-107 Carbon dioxide 20 mmol/L 21-32 Serum or plasma anion gap determination (moles/volume) 24 mmol/L 5-14 Serum or plasma urea nitrogen measurement (mass/volume ) 9 mg/dL 7-18 Serum or plasma creatinine measurement (mass/volume) 0.61 mg/dL 0.60-1.30 Serum or plasma urea nitrogen/creatinine mass ratio 15 NRG Serum or plasma creatinine measurement w ith calculation of estimated glomerular filtration rate > NRG Serum or plasma glucose measurement (mass/volume) 532 mg/dL 70-105 Serum or plasma calcium measurement (mass/volume) 9.0 mg/dL 8.5-10.1 Serum or plasma total bilirubin measurement (mass/volu me) 0.3 mg/dL 0.1-1.0 Serum or plasma alkaline phosphatase qing surement (enzymatic activity/volume) 132 U/L 40-136 Serum or plasma aspartate aminotransfera se measurement (enzymatic activity/volume) 20 U/L 5-34 Serum or plasma alanine aminotransferase measurement (enzymatic activity/volume) 20 U/L 0-55 Serum or plasma protein measurement (mass/volume) 6.9 g/dL 6.4-8.2 Serum or plasma albumin measurement (mass/volume) 4.2 g/dL 3.2-4.5 CALCIUM CORRECTED 8.8 mg/dL 8.5-10.1 Capillary blood glucose measurement by g lucometer (mass/volume) - 01/15/19 00:46 Capillary blood glucose measurement by glucometer (mas s/volume) 448 mg/dL 70-110 Automated dipstick urinalysis - 01/15/19 02:44 Urine color determination PALE YELLOW N RG Urine clarity determination CLEAR NR G Urine pH measurement by test strip 6.0 5-9 Specific gravity of urine by test strip 1.010 1.016-1.022 Urine protein assay by test strip, semi-quantitative NEGATIVE NEGATIVE Urine glucose detection by automated test strip 3+ NEGATIVE Erythrocytes detection in urine sediment by light micr oscopy NEGATIVE NEGATIVE Urine ketones detection by automated test strip 3+ NEGATIVE Urine nitrite detection by test strip NEGATIVE NEGATIVE Urine total bilirubin detection by test strip NEGA TIVE NEGATIVE Urine urobilinogen measurement by automated test strip (mass/volume) 0.2 mg/dL NORMAL Urine leukocyte esterase detection by dipstick NEG ATIVE NEGATIVE Capillary blood glucose measurement by g lucometer (mass/volume) - 01/15/19 03:07 Capillary blood glucose measurement by glucometer (mas s/volume) 282 mg/dL 70-110 Complete blood count (CBC) with automate d white blood cell (WBC) differential - 01/15/19 06:54 Blood leukocytes automated count (number/volume) 9.7 10*3/uL 4.3-11.0 Blood erythrocytes automated count (number/volume) 4.73 10*6/uL 4.35-5.85 Venous blood hemoglobin measurement (mass/volume) 12.2 g/dL 13.3-17.7 Blood hematocrit (volume fraction) 37 % 40-54 Automated erythrocyte mean corpuscular volume 78 [ foz_us] 80-99 Automated erythrocyte mean corpuscular h emoglobin (mass per erythrocyte) 26 pg 25-34 Automated erythrocyte mean corpuscular h emoglobin concentration measurement (mass/volume) 33 g/dL 32-36 Automated erythrocyte distribution width ratio 16. 7 % 10.0- 14.5 Automated blood platelet count (count/volume) 288 10*3/uL 130-400 Automated blood platelet mean volume measurement 10.1 [foz_us] 7.4-10.4 Automated blood neutrophils/100 leukocytes 57 % 42-75 Automated blood lymphocytes/100 leukocytes 33 % 12-44 Blood monocytes/100 leukocytes 7 % 0-12 Automated blood eosinophils/100 leukocytes 3 % 0-10 Automated blood basophils/100 leukocytes 1 % 0-10 Blood neutrophils automated count (number/volume) 5.5 10*3 1.8-7.8 Blood lymphocytes automated count (number/volume) 3.2 10*3 1.0-4.0 Blood monocytes automated count (number/volume) 0. 6 10*3 0.0-1.0 Automated eosinophil count 0.3 10*3/uL 0 .0-0.3 Automated blood basophil count (count/volume) 0.1 10*3/uL 0.0-0.1 Comprehensive metabolic panel - 01/15/19 06:54 Serum or plasma sodium measurement (moles/volume) 134 mmol/L 135-145 Serum or plasma potassium measurement (moles/volume) 3.9 mmol/L 3.6-5.0 Serum or plasma chloride measurement (moles/volume) 100 mmol/L 98-107 Carbon dioxide 18 mmol/L 21-32 Serum or plasma anion gap determination (moles/volume) 16 mmol/L 5-14 Serum or plasma urea nitrogen measurement (mass/volume ) 8 mg/dL 7-18 Serum or plasma creatinine measurement (mass/volume) 0.92 mg/dL 0.60-1.30 Serum or plasma urea nitrogen/creatinine mass ratio 9 NRG Serum or plasma creatinine measurement w ith calculation of estimated glomerular filtration rate > NRG Serum or plasma glucose measurement (mass/volume) 243 mg/dL 70-105 Serum or plasma calcium measurement (mass/volume) 9.2 mg/dL 8.5-10.1 Serum or plasma total bilirubin measurement (mass/volu me) 0.3 mg/dL 0.1-1.0 Serum or plasma alkaline phosphatase qing surement (enzymatic activity/volume) 131 U/L 40-136 Serum or plasma aspartate aminotransfera se measurement (enzymatic activity/volume) 19 U/L 5-34 Serum or plasma alanine aminotransferase measurement (enzymatic activity/volume) 24 U/L 0-55 Serum or plasma protein measurement (mass/volume) 6.7 g/dL 6.4-8.2 Serum or plasma albumin measurement (mass/volume) 3.9 g/dL 3.2-4.5 CALCIUM CORRECTED 9.3 mg/dL 8.5-10.1 Magnesium - 01/15/19 06:54 Magnesium 2.1 mg/dL 1.8-2.4 Serum or plasma troponin i.cardiac measu rement (mass/volume) - 01/15/19 06:54 Serum or plasma troponin i.cardiac measurement (mass/v olume) < ng/mL <0.028 Arterial blood gas measurement - 9 07:35 Blood pCO2 47 mm[Hg] 35-45 Blood pO2 19 mm[Hg] 79-93 Arterial blood bicarbonate measurement (moles/volume) 25 mmol/L 23-27 Arterial blood base excess by calculation -0.4 mmo l/L -2.5-2.5 Arterial blood oxygen saturation measurement 22 % 94-100 * Inhaled oxygen flow rate ROOM AIR NRG Arterial blood pH measurement with patient temperature correction 7.34 7.37-7.43 Arterial blood carbon dioxide, total measurement (mole s/volume) 26.1 mmol/L 21.0-31.0 Body site R BRACHIAL NRG Assessment of wrist artery patency prior to arterial p uncture YES-POS NRG Setting of ventilation mode NO NR G Measurement of body temperature 98.4 NRG Serum or plasma troponin i.cardiac measu rement (mass/volume) - 01/15/19 09:05 Serum or plasma troponin i.cardiac measurement (mass/v olume) < ng/mL <0.028 Lipase - 01/15/19 09:05 Lipase 26 U/L 8-78 Capillary blood glucose measurement by g lucometer (mass/volume) - 01/15/19 11:18 Capillary blood glucose measurement by glucometer (mas s/volume) 594 mg/dL 70-110 Capillary blood glucose measurement by g lucometer (mass/volume) - 01/15/19 13:48 Capillary blood glucose measurement by glucometer (mas s/volume) 426 mg/dL 70-110 Serum or plasma troponin i.cardiac measu rement (mass/volume) - 01/15/19 15:30 Serum or plasma troponin i.cardiac measurement (mass/v olume) < ng/mL <0.028 Capillary blood glucose measurement by g lucometer (mass/volume) - 01/15/19 15:36 Capillary blood glucose measurement by glucometer (mas s/volume) 329 mg/dL 70-110 Capillary blood glucose measurement by g lucometer (mass/volume) - 01/15/19 21:09 Capillary blood glucose measurement by glucometer (mas s/volume) 267 mg/dL 70-110 Complete blood count (CBC) with automate d white blood cell (WBC) differential - 01/16/19 05:20 Blood leukocytes automated count (number/volume) 6.6 10*3/uL 4.3-11.0 Blood erythrocytes automated count (number/volume) 4.45 10*6/uL 4.35-5.85 Venous blood hemoglobin measurement (mass/volume) 11.2 g/dL 13.3-17.7 Blood hematocrit (volume fraction) 34 % 40-54 Automated erythrocyte mean corpuscular volume 77 [ foz_us] 80-99 Automated erythrocyte mean corpuscular h emoglobin (mass per erythrocyte) 25 pg 25-34 Automated erythrocyte mean corpuscular h emoglobin concentration measurement (mass/volume) 33 g/dL 32-36 Automated erythrocyte distribution width ratio 16. 6 % 10.0- 14.5 Automated blood platelet count (count/volume) 252 10*3/uL 130-400 Automated blood platelet mean volume measurement 10.0 [foz_us] 7.4-10.4 Automated blood neutrophils/100 leukocytes 44 % 42-75 Automated blood lymphocytes/100 leukocytes 42 % 12-44 Blood monocytes/100 leukocytes 10 % 0-12 Automated blood eosinophils/100 leukocytes 4 % 0-10 Automated blood basophils/100 leukocytes 1 % 0-10 Blood neutrophils automated count (number/volume) 2.9 10*3 1.8-7.8 Blood lymphocytes automated count (number/volume) 2.7 10*3 1.0-4.0 Blood monocytes automated count (number/volume) 0. 7 10*3 0.0-1.0 Automated eosinophil count 0.3 10*3/uL 0 .0-0.3 Automated blood basophil count (count/volume) 0.0 10*3/uL 0.0-0.1 Comprehensive metabolic panel - 01/16/19 05:20 Serum or plasma sodium measurement (moles/volume) 134 mmol/L 135-145 Serum or plasma potassium measurement (moles/volume) 4.4 mmol/L 3.6-5.0 Serum or plasma chloride measurement (moles/volume) 101 mmol/L 98-107 Carbon dioxide 22 mmol/L 21-32 Serum or plasma anion gap determination (moles/volume) 11 mmol/L 5-14 Serum or plasma urea nitrogen measurement (mass/volume ) 19 mg/dL 7-18 Serum or plasma creatinine measurement (mass/volume) 0.80 mg/dL 0.60-1.30 Serum or plasma urea nitrogen/creatinine mass ratio 24 NRG Serum or plasma creatinine measurement w ith calculation of estimated glomerular filtration rate > NRG Serum or plasma glucose measurement (mass/volume) 262 mg/dL 70-105 Serum or plasma calcium measurement (mass/volume) 9.1 mg/dL 8.5-10.1 Serum or plasma total bilirubin measurement (mass/volu me) 0.2 mg/dL 0.1-1.0 Serum or plasma alkaline phosphatase qing surement (enzymatic activity/volume) 111 U/L 40-136 Serum or plasma aspartate aminotransfera se measurement (enzymatic activity/volume) 39 U/L 5-34 Serum or plasma alanine aminotransferase measurement (enzymatic activity/volume) 27 U/L 0-55 Serum or plasma protein measurement (mass/volume) 5.6 g/dL 6.4-8.2 Serum or plasma albumin measurement (mass/volume) 3.5 g/dL 3.2-4.5 CALCIUM CORRECTED 9.5 mg/dL 8.5-10.1 Capillary blood glucose measurement by g lucometer (mass/volume) - 01/16/19 05:33 Capillary blood glucose measurement by glucometer (mas s/volume) 274 mg/dL 70-110 Capillary blood glucose measurement by g lucometer (mass/volume) - 01/16/19 10:50 Capillary blood glucose measurement by glucometer (mas s/volume) 110 mg/dL 70-110 CRP - 01/18/19 10:42 C-REACTIVE PROTEIN 11.8 mg/L <8.0 Encounters ACCT No. Visit Date/Time Discharge Status Pt. Type Provider Facility Loc./Unit Complaint [id number] 04/20/2019 14:00:00 04/20/2019 23:59:5 9 CLS Outpatient LIZABETH RANGEL [facility] [id number] 01/18/2019 10:00:00 Document Registration [id number] 01/14/2019 23:36:00 019 13:23:00 DIS Outpatient ROSALVA TORREZ, SILVIA Downs [facility] 4TH HYPERTENSION/CH EST PAIN
--- NOTE | 2019-11-22 07:47 | ED Chest Pain ---
General Chief Complaint: Chest Pain Stated Complaint: CHEST PAIN Source: patient, EMS History of Present Illness Date Seen by Provider: Nov 22, 2019 Time Seen by Provider: 07:35 Initial Comments The patient is a 49-year-old male who presents for evaluation of chest pain which started yesterday. EMS states they have transported the patient for similar chest pain many times in the last 6-12 months. He is a history of insulin-dependent diabetes but has been noncompliant with his medication and his sugar today read as "high" by EMS. He states he used to be an alcoholic but is not had any since August 29. He states that he had a "mild heart attack" but is never received a stent or any cardiac procedures. Pain is in his lower sternal chest radiating to his back. He denies history of peptic ulcer disease or pancreatitis. He is alert and oriented 4, calm, and appears to be in no distress at this time. EMS gave the patient aspirin, nitroglycerin, morphine, and a liter of NS in route to the hospital. He denies fevers or chills, cough, shortness of breath, abdominal pain, diaphoresis, nausea or vomiting, palpitations, dizziness or syncope. 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 NTG SL FRAUD INVESTIGATOR: Yes Associated Symptoms: denies symptoms Allergies and Home Medications Allergies Coded Allergies: No Known Drug Allergies (Unverified , 01/14/19) Home Medications Insulin Aspart 300 Units/3 Ml Solution, 10 UNITS SQ AC #10 PENS RUN THROUGH [address] [employer] Prescribed by: MICAH SHAHID on 01/15/191337 Insulin Detemir 100 Unit/1 Ml Insuln.pen, 40 UNIT SQ HS #10 RUN THROUGH [address] [employer] Prescribed by: MICAH SHAHID on 01/15/19 1338 Patient Home Medication List Home Medication List Reviewed: Yes Review of Systems Review of Systems Constitutional: no symptoms reported EENTM: No Symptoms Reported Respiratory: No Symptoms Reported Cardiovascular: Chest Pain Gastrointestinal: No Symptoms Reported Genitourinary: No Symptoms Reported Musculoskeletal: no symptoms reported Skin: no symptoms reported Psychiatric/Neurological: No Symptoms Reported Endocrine: No Symptoms Reported Hematologic/Lymphatic: No Symptoms Reported All Other Systems Reviewed Negative Unless Noted: Yes Past Xqjzcrf-Dvaqkm-Rkgaim Hx Past Med/Social Hx: Reviewed Nursing Past Med/Soc Hx Patient Social History Type Used: Cigarettes 2nd Hand Smoke Exposure: Yes Recent Foreign Travel: Yes Recent Hopitalizations: No Seasonal Allergies Seasonal Allergies: No Past Medical History Surgeries: No Respiratory: Yes Pneumonia, COPD, Emphysema Cardiac: Yes Hypertension Neurological: Yes Headaches /Migraines Genitourinary: Yes Renal Failure Gastrointestinal: Yes (Chronic Pancreatitis due to alcoholism.) Gastroesophageal Reflux, Quezada's Esophagus, Pancreatitis Musculoskeletal: No Endocrine: Yes Diabetes, Non-Insulin dep HEENT: No Cancer: No Psychosocial: No Integumentary: No Blood Disorders: No Physical Exam Vital Signs Vital Signs - First Documented Capillary Refill : Height, Weight, BMI Height: 5'9.00" Weight: 144lbs. 2.0oz. [id number]; 21.2 BMI Method:Stated General Appearance: No Apparent Distress, WD/WN HEENT: PERRL/EOMI, Pharynx Normal Neck: Full Range of Motion, Normal Inspection, Non Tender Respiratory: Chest Non Tender, Lungs Clear, Normal Breath Sounds, No Accessory Muscle Use, No Respiratory Distress Cardiovascular: Regular Rate, Rhythm, No Edema, Normal Peripheral Pulses Gastrointestinal: Normal Bowel Sounds, Non Tender, Soft Extremity: Normal Capillary Refill, Normal Inspection, Non Tender Neurologic/Psychiatric: Alert, Oriented x3, No Motor/Sensory Deficits, Normal Mood/Affect Skin: Normal Color, Warm/Dry Progress/Results/Core Measures Results/Orders Lab Results Laboratory Tests Test 11/22/19 07:38 11/22/19 07:52 11/22/19 09:06 Range/Units White Blood Count 15.1 H 4.3-11.0 10^3/uL Red Blood Count 4.55 4.35-5.85 10^6/uL Hemoglobin 11.5 L 13.3-17.7 G/DL Hematocrit 36 L 40-54 % Mean Corpuscular Volume 79 L 80-99 FL Mean Corpuscular Hemoglobin 25 25-34 PG Mean Corpuscular Hemoglobin Concent 32 32-36 G/DL Red Cell Distribution Width 15.8 H 10.0-14.5 % Platelet Count 369 130-400 10^3/uL Mean Platelet Volume 10.0 7.4-10.4 FL Neutrophils (%) (Auto) 81 H 42-75 % Lymphocytes (%) (Auto) 12 12-44 % Monocytes (%) (Auto) 6 0-12 % Eosinophils (%) (Auto) 1 0-10 % Basophils (%) (Auto) 0 0-10 % Neutrophils # (Auto) 12.2 H 1.8-7.8 X 10^3 Lymphocytes # (Auto) 1.8 1.0-4.0 X 10^3 Monocytes # (Auto) 0.9 0.0-1.0 X 10^3 Eosinophils # (Auto) 0.1 0.0-0.3 10^3/uL Basophils # (Auto) 0.1 0.0-0.1 10^3/uL Neutrophils % (Manual) 80 % Lymphocytes % (Manual) 12 % Monocytes % (Manual) 2 % Eosinophils % (Manual) 1 % Basophils % (Manual) 1 % Metamyelocytes % 1 % Myelocytes % 1 % Band Neutrophils 2 % Prothrombin Time 12.1 L 12.2-14.7 SEC INR Comment 0.9 0.8-1.4 Activated Partial Thromboplast Time 30 24-35 SEC Sodium Level 130 L 135-145 MMOL/L Potassium Level 5.7 H 3.6-5.0 MMOL/L Chloride Level 90 L 98-107 MMOL/L Carbon Dioxide Level 29 21-32 MMOL/L Anion Gap 11 5-14 MMOL/L Blood Urea Nitrogen 19 H 7-18 MG/DL Creatinine 0.66 0.60-1.30 MG/DL Estimat Glomerular Filtration Rate > 60 BUN/Creatinine Ratio 29 Glucose Level 720 *H 70-105 MG/DL Calcium Level 9.6 8.5-10.1 MG/DL Corrected Calcium 9.6 8.5-10.1 MG/DL Total Bilirubin 0.2 0.1-1.0 MG/DL Aspartate Amino Transf (AST/SGOT) 30 5-34 U/L Alanine Aminotransferase (ALT/SGPT) 28 0-55 U/L Alkaline Phosphatase 170 H 40-136 U/L Troponin I < 0.30 <0.30 NG/ML Pro-B-Type Natriuretic Peptide 68.9 <75.0 PG/ML Total Protein 7.2 6.4-8.2 GM/DL Albumin 4.0 3.2-4.5 GM/DL Amylase Level 64 25-125 U/L Lipase 31 8-78 U/L Glucometer > 600 *H 393 H 70-110 MG/DL My Orders Orders - MAXIMILIANO BAIN DO Cbc With Automated Diff (11/22/19 07:39) Chest 1 View Ap/Pa Only (11/22/19 07:39) Ekg Tracing (11/22/19 07:39) Comprehensive Metabolic Panel (11/22/19 07:39) Protime With Inr (11/22/19 07:39) Partial Thromboplastin Time (11/22/19 07:39) O2 (11/22/19 07:39) Monitor-Rhythm Ecg Trace Only (11/22/19 07:39) Ed Iv/Invasive Line Start (11/22/19 07:39) Lipase (11/22/19 07:39) Amylase (11/22/19 07:39) Troponin I Fs (11/22/19 07:39) Probnp Fs (11/22/19 07:39) Manual Differential (11/22/19 07:38) Ns Iv 1000 Ml (Sodium Chloride 0.9%) (11/22/19 08:15) Insulin (Regular) Human (Humulin R (Per (11/22/19 08:30) Morphine Injection (Morphine Injection (11/22/19 08:40) Medications Given in ED Current Medications Medications Dose Ordered Sig/Yoselin Route Start Time Stop Time Status Last Admin Dose Admin Insulin Human Regular 10 unit ONCE ONCE IV 11/22/19 08:30 11/22/19 08:31 DC 11/22/19 08:27 10 UNIT Vital Signs/I&O 11/22/19 11/22/19 07:37 07:37 Temp 35.8 Pulse 73 Resp 18 B/P (MAP) 136/78 (97) Pulse Ox 94 O2 Delivery Room Air Room Air Progress Progress Note : Progress Note @0902 - patient informed of lab and imaging results and agrees with plan to be admitted. Case was discussed with Dr. Irizarry at [facility] who accepts the patient for transfer. Comment @0737 - normal sinus rhythm with left bundle branch block, left axis deviation is present, rate of 76, no acute ischemic findings noted, no STEMI, reviewed and interpreted by myself Diagnostic Imaging Diagonstic Imaging: [facility] [place] [place] NAME: JERRY ROBERTS REC#: [id number] PT STATUS: REG ER : 1970 PHYSICIAN: MAXIMILIANO BAIN DO ADMIT DATE: 11/22/19/ER FS Draft Date of Exam:11/22/19 CHEST 1 VIEW AP/PA ONLY Indication: Epigastric and chest pain. Compared: 01/14/2019 Findings: There are chronic changes of COPD and chronic prominence of interstitial lung markings. No effusion or pneumothorax. No change. Impression: Stable chronic lung disease. Dictated on workstation # [id number] Dict: 11/22/19 0758 Trans: 11/22/19 0800 CV [id number] Interpreted by: YOLANDA WAGNER Electronically signed by: Departure Communication (Admissions) Time/Spoke to Admitting Phy: 09:02 Dr. Irizarry accepts the admission at [facility] Impression Primary Impression: Chest pain Additional Impression: Uncontrolled diabetes mellitus Disposition: ADMITTED INPATIENT Condition: Stable Admissions Decision to Admit Reason: Admit from ER (General) Decision to Admit/Date: Nov 22, 2019 Time/Decision to Admit Time: 09:10 Departure-Patient Inst. Referrals: NO,LOCAL PHYSICIAN (PCP/Family) Primary Care Physician MAXIMILIANO BAIN DO Nov 22, 2019 07:47
[2019-11-22 07:51] LABS: HEMATOCRIT 36 % (40-54); HEMOGLOBIN 11.5 G/DL (13.3-17.7); MEAN CORPUSCULAR HEMOGLOBIN 25 PG (25-34); MEAN CORPUSCULAR HGB CONC 32 G/DL (32-36); MEAN CORPUSCULAR VOLUME 79 FL (80-99); PLATELET COUNT 369 10^3/uL (130-400); RED CELL DISTRIBUTION WIDTH 15.8 % (10.0-14.5); WHITE BLOOD COUNT 15.1 10^3/uL (4.3-11.0)
[2019-11-22 07:52] LABS: BASOPHILS # (AUTO) 0.1 10^3/uL (0.0-0.1); BASOPHILS % (AUTO) 0 % (0-10); EOSINOPHILS # (AUTO) 0.1 10^3/uL (0.0-0.3); EOSINOPHILS % (AUTO) 1 % (0-10); LYMPHOCYTES # (AUTO) 1.8 X 10^3 (1.0-4.0); LYMPHOCYTES % (AUTO) 12 % (12-44); MONOCYTES # (AUTO) 0.9 X 10^3 (0.0-1.0); MONOCYTES % (AUTO) 6 % (0-12); NEUTROPHILS # (AUTO) 12.2 X 10^3 (1.8-7.8); NEUTROPHILS % (AUTO) 81 % (42-75)
--- NOTE | 2019-11-22 08:00 | Diagnostic Imaging Report ---
Indication: Epigastric and chest pain. Compared: 01/14/2019 Findings: There are chronic changes of COPD and chronic prominence of interstitial lung markings. No effusion or pneumothorax. No change. Impression: Stable chronic lung disease. Dictated by: Dictated on workstation # [id number]
[2019-11-22 08:06] LABS: INR 0.9 (0.8-1.4); PROTHROMBIN TIME PATIENT 12.1 SEC (12.2-14.7)
[2019-11-22 08:07] LABS: BAND NEUTROPHILS 2 %; BASOPHILS % (MANUAL) 1 %; EOSINOPHILS % (MANUAL) 1 %; LYMPHOCYTES % (MANUAL) 12 %; METAMYELOCYTES % 1 %; MONOCYTES % (MANUAL) 2 %; MYELOCYTES % 1 %; NEUTROPHILS % (MANUAL) 80 %
[2019-11-22 08:13] LABS: CHLORIDE 90 MMOL/L (98-107); POTASSIUM 5.7 MMOL/L (3.6-5.0); SODIUM 130 MMOL/L (135-145)
[2019-11-22 08:14] LABS: BUN/CREATININE RATIO 29; CARBON DIOXIDE 29 MMOL/L (21-32); CREATININE SERUM 0.66 MG/DL (0.60-1.30); GFR ESTIMATED > 60
[2019-11-22] MEDS ORDERED: NS IV 1000 ML 1,000 ML IV SCH (08:15)
[2019-11-22 08:16] LABS: ALANINE AMINOTRANSFERASE 28 U/L (0-55); ALKALINE PHOSPHATASE 170 U/L (40-136); AMYLASE 64 U/L (25-125); BILIRUBIN,TOTAL 0.2 MG/DL (0.1-1.0); CALCIUM 9.6 MG/DL (8.5-10.1); GLUCOSE 720 MG/DL (70-105); LIPASE 31 U/L (8-78); TOTAL PROTEIN 7.2 GM/DL (6.4-8.2)
[2019-11-22] MEDS ORDERED: inSUlin (REGULAR) HUMAN 1 UNIT/0.01 ML (CHARGE PER UNIT) IV ONE (08:30)
--- NOTE | 2019-11-22 08:39 | NUR ---
Patient awake and alert, lying in bed. Patient given ice water upon request.
[2019-11-22] MEDS ORDERED: morphine INJ 10 MG/ML 1ML (SYR OR VIAL) IVP STA ×2 (08:40→11:29)
--- NOTE | 2019-11-22 09:08 | NUR ---
Patient rating chest pain at an 8 and 1/2 after morphine was given. Pain level before morphine was a 9. Patient states the morphine did not help much. Dr. De Leon notified and no new orders given.
--- NOTE | 2019-11-22 09:25 | NUR ---
Patient states his chest pain is worse. Dr. De Leon notified. No new orders given.
[2019-11-22 09:55] VITALS: BP 107/64
--- NOTE | 2019-11-22 10:20 | NUR ---
Report called to Lanie JOSHUA at [facility].
--- NOTE | 2019-11-22 10:46 | NUR ---
Patient awake and alert. He is rating his pain at a 10 out of 10. He states nothing is helping his pain and he needs more pain medication.
--- NOTE | 2019-11-22 11:42 | NUR ---
Patient is awake and alert. Morphine 2 mg given IV. Patient states morphine is not helping his pain and that Fentanyl usually works for his pain. He states "The only reason I came to this hospital today is because i have been to every other hospital and they can't figure out why I am in pain."
[2019-11-22 11:51] VITALS: BP 113/69
--- OUTSIDE RECORDS SUMMARY | 2019-11-22 12:05 | XMS REPORT | Continuity of Care Document ---
Author Organization Unknown Address Unknown Phone Unavailable Allergies Active Description Code Type Severity Reaction Onset Reported/Identified Relationship to Patient Clinical Status Yes No Known Drug Allergies [id number] Drug Allergy Unknown N/A 01/14/2019 Medications There is no data. 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 [...] 01/18/19 10:42 C-REACTIVE PROTEIN 11.8 mg/L <8.0 Complete blood count (CBC) with automate d white blood cell (WBC) differential - 11/22/19 07:38 Blood leukocytes automated count (number/volume) 15.1 10*3/uL 4.3-11.0 Blood erythrocytes automated count (number/volume) 4.55 10*6/uL 4.35-5.85 Venous blood hemoglobin measurement (mass/volume) 11.5 g/dL 13.3-17.7 Blood hematocrit (volume fraction) 36 % 40-54 Automated erythrocyte mean corpuscular volume 79 [ foz_us] 80-99 Automated erythrocyte mean corpuscular h emoglobin (mass per erythrocyte) 25 pg 25-34 Automated erythrocyte mean corpuscular h emoglobin concentration measurement (mass/volume) 32 g/dL 32-36 Automated erythrocyte distribution width ratio 15. 8 % 10.0- 14.5 Automated blood platelet count (count/volume) 369 10*3/uL 130-400 Automated blood platelet mean volume measurement 10.0 [foz_us] 7.4-10.4 Automated blood neutrophils/100 leukocytes 81 % 42-75 Automated blood lymphocytes/100 leukocytes 12 % 12-44 Blood monocytes/100 leukocytes 6 % 0-12 Automated blood eosinophils/100 leukocytes 1 % 0-10 Automated blood basophils/100 leukocytes 0 % 0-10 Blood neutrophils automated count (number/volume) 12.2 10*3 1.8-7.8 Blood lymphocytes automated count (number/volume) 1.8 10*3 1.0-4.0 Blood monocytes automated count (number/volume) 0. 9 10*3 0.0-1.0 Automated eosinophil count 0.1 10*3/uL 0 .0-0.3 Automated blood basophil count (count/volume) 0.1 10*3/uL 0.0-0.1 PT panel in platelet poor plasma by coag ulation assay - 11/22/19 07:38 Prothrombin time (PT) in platelet poor plasma by coagu lation assay 12.1 s 12.2-14.7 INR in platelet poor plasma or blood by coagulation as say 0.9 0.8-1.4 Activated partial thromboplastin time (a PTT) in platelet poor plasma bycoagulation assay - 11/22/19 07:38 Activated partial thromboplastin time (a PTT) in platelet poor plasma bycoagulation assay 30 s 24-35 Manual absolute plasma cell count - 10/28 02/15 07:38 Blood monocytes/100 leukocytes 2 % NRG Manual blood segmented neutrophils/100 leukocytes 80 % NRG Blood band neutrophils/100 leukocytes 2 % NRG Manual blood lymphocytes/100 leukocytes 12 % NRG Manual eosinophils/100 leukocytes in nose 1 % NRG Manual blood basophils/100 leukocytes 1 % NRG Manual blood metamyelocytes/100 leukocytes 1 % NRG Manual blood myelocytes/100 leukocytes 1 % NRG Comprehensive metabolic panel - 11/22/19 07:38 Serum or plasma sodium measurement (moles/volume) 130 mmol/L 135-145 Serum or plasma potassium measurement (moles/volume) 5.7 mmol/L 3.6-5.0 Serum or plasma chloride measurement (moles/volume) 90 mmol/L 98-107 Carbon dioxide 29 mmol/L 21-32 Serum or plasma anion gap determination (moles/volume) 11 mmol/L 5-14 Serum or plasma urea nitrogen measurement (mass/volume ) 19 mg/dL 7-18 Serum or plasma creatinine measurement (mass/volume) 0.66 mg/dL 0.60-1.30 Serum or plasma urea nitrogen/creatinine mass ratio 29 NRG Serum or plasma creatinine measurement w ith calculation of estimated glomerular filtration rate > NRG Serum or plasma glucose measurement (mass/volume) 720 mg/dL 70-105 Serum or plasma calcium measurement (mass/volume) 9.6 mg/dL 8.5-10.1 Serum or plasma total bilirubin measurement (mass/volu me) 0.2 mg/dL 0.1-1.0 Serum or plasma alkaline phosphatase qing surement (enzymatic activity/volume) 170 U/L 40-136 Serum or plasma aspartate aminotransfera se measurement (enzymatic activity/volume) 30 U/L 5-34 Serum or plasma alanine aminotransferase measurement (enzymatic activity/volume) 28 U/L 0-55 Serum or plasma protein measurement (mass/volume) 7.2 g/dL 6.4-8.2 Serum or plasma albumin measurement (mass/volume) 4.0 g/dL 3.2-4.5 CALCIUM CORRECTED 9.6 mg/dL 8.5-10.1 Serum or plasma amylase measurement (enz ymatic activity/volume) - 11/22/19 07:38 Serum or plasma amylase measurement (enzymatic activit y/volume) 64 U/L 25-125 Lipase - 11/22/19 07:38 Lipase 31 U/L 8-78 TROPONIN I FS - 11/22/19 07:38 TROPONIN I FS < 0.30 <0.30 PROBNP FS - 11/22/19 07:38 PROBNP FS 68.9 pg/mL <75.0 Capillary blood glucose measurement by g lucometer (mass/volume) - 11/22/19 07:52 Capillary blood glucose measurement by glucometer (mas s/volume) > mg/dL 70-110 Capillary blood glucose measurement by g lucometer (mass/volume) - 11/22/19 09:06 Capillary blood glucose measurement by glucometer (mas s/volume) 393 mg/dL 70-110 Capillary blood glucose measurement by g lucometer (mass/volume) - 11/22/19 10:26 Capillary blood glucose measurement by glucometer (mas s/volume) 308 mg/dL 70-110 Encounters ACCT No. Visit Date/Time Discharge Status Pt. Type Provider Facility Loc./Unit Complaint [id number] 04/20/2019 14:00:00 04/20/2019 23:59:5 9 CLS Outpatient LIZABETH RANGEL [facility] [id number] 01/18/2019 10:00:00 Document Registration [id number] 01/14/2019 23:36:00 019 13:23:00 DIS Outpatient ROSALVA TORREZ, SILVIA Rivera [facility] 4TH HYPERTENSION/CH EST PAIN [id number] 11/22/2019 07:53:00 Document Registration
--- NOTE | 2019-11-22 12:20 | NUR ---
Transfer form faxed to [facility]. There was a delay in transfer due to EMS crews being on another transfer.
--- NOTE | 2019-11-22 12:37 | NUR ---
Patient lying in bed, sleeping. No signs of distress present at this time. Awaiting EMS to transfer to [facility].
--- NOTE | 2019-11-22 13:02 | NUR ---
Patient is awake and alert, asking for more pain medication. Dr. Meredith Notified and no new orders given.
[2019-11-22 13:33] VITALS: BP 131/61
--- NOTE | 2019-11-22 13:45 | NUR ---
JERRY ROBERTS admitted to room 414-1, with an admitting diagnosis of CP/UNCONTROLLED DM, on 11/22/19 from ED via EMS, accompanied by EMS/STAFF. JERRY ROBERTS introduced to surroundings, call light, bed controls, phone, TV, temperature control, lights, meal times, smoking policy, visitor policy, side rail policy, bathrooms and showers. Patient Rights given to patient in the handbook. JERRY ROBERTS verbalizes understanding that [facility] is not responsible for the loss or damage to any personal effects or valuables that are kept in the patients posession during their hospitalization. JERRY ROBERTS verbalizes understanding of Interdisciplinary Patient Education. Patient and/or family were informed about the Rapid Response Team and its purpose.
--- NOTE | 2019-11-22 13:48 | NUR ---
[facility] advised they will have a unit available in a little while. Patient remains awake and alert.
[2019-11-22] MEDS ORDERED: fentaNYL INJECTION 100 MCG/2 ML AMP IVP ONE (15:00)
--- NOTE | 2019-11-22 15:03 | NUR ---
EMS arrived and patient states he will not go with EMS unless he recieves pain medication because his chest is hurting [address] Meredith notified and Fentanyl 25 mcg given IV. Patient then is ambulatory to cot without difficulty. EMS transport patient with cardiac monitoring and IV saline lock in place.
[2019-11-22] MEDS ORDERED: morphine INJ 4 MG/ML 1 ML (VIAL/SYRINGE) IV PRN (16:00)
[2019-11-22] MEDS ORDERED: ONDANSETRON 4 MG/2 ML (SDV) Z0FRAN IVP PRN ×2 (16:00→18:00)
[2019-11-22 16:14] VITALS: BP 110/74
[2019-11-22 16:16] VITALS: BP 110/74
--- NOTE | 2019-11-22 17:11 | NUR ---
UNABLE TO OBTAIN Addendum: 11/22/19 at 1713 by NEERAJ KELSEY RN Amended: Links added.
[2019-11-22] MEDS: NITROGLYCERIN 0.4 MG SL TABS BTL 25'S SL PRN ×2 (17:17→17:27)
--- NOTE | 2019-11-22 17:35 | NUR ---
PT GIVEN SL NITRO X2 WITH NO CHANGE IN PAIN RATING, PT RATING EPIGASTRIC PAIN AT 8 OUT OF 10 BEFORE AND AFTER NITRO ADMINISTRATION. Addendum: 11/22/19 at 1737 by NE[address] RODGERS NOTIFIED
--- NOTE | 2019-11-22 17:58 | History & Physical-Hospitalist ---
History of Present Illness HPI/Chief Complaint Chief complaint: Chest pain History present illness: This is a 49-year-old white male of Dr. Wolfe in [place] who previously doctored with Dr. 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 Patient reported chest pain upon arrival to nitroglycerin were obtain EKG showed no ST elevation or changes and cardiology was consulted and stat troponin was negative and will be repeated in 3 hours of chest pain continues. He has a longstanding history of chronic pancreatitis with pseudocyst in the past and he reports his last alcoholic drink was August 29 of this year. Patient is completely noncompliant with all insulin at all medication that he is supposed to be on. Very difficult to manage considering how noncompliant he is. We will maintain admission status treat severe pain with narcotics initiate nebulizer treatments check pro calcitonin for elevation in case coarse breath sounds are from bronchitis and will consult general surgery Dr. Du to evaluate abdominal pain. DC note 09/2016: Brief Hospital Course: The patient was admitted and the following issues were addressed during this hospitalization: (with pertinent details). . Patient had significant past medical history of alcoholism chronic pancreatitis and possible pancreatic pseudocyst with concern for partial gastric outlet obstruction was transferred from outside facility via air ambulance due to HHS. Patient had a blood glucose measured at outside facility of 2300, which had decreased to 900 by the time he arrived at . With an insulin drip patient rapidly corrected and after increased stabilization he was able to be transferred from the ICU to the floor. Imaging showed no progression of previous issues, and endocrinology was consulted to help manage patient's hyperglycemia. Patient was able to tolerate food and able to ambulate 500 feet with no assistance, and with insulin regimen his blood glucose levels significantly improved. Diabetic education was consulted and after education the patient expressed ability to take care of insulin administration by himself. Patient has significant social challenges due to lack of employment and cost of insulin, however with voucher from and resources made available by social work patient felt that he would be able to acquire his medicines. Patient was discharged in stable condition, with insulin and blood glucose supplies, with transportation back to his home, with long-term medications are arranged. Patient will need follow-up with local PCP. Source: patient, RN/MD Exam Limitations: no limitations Date Seen 11/22/19 Time Seen by a Provider: 17:45 Attending Physician Silvia Rodgers Jay L MD Referring Physician Date of Admission Nov 22, 2019 at 10:20 Home Medications & Allergies Home Medications Reviewed patient Home Medication Reconciliation performed by pharmacy medication reconciliations home service technician and/or nursing. Patients Allergies have been reviewed. Allergies Allergies Coded Allergies No Known Drug Allergies (Unverified01/14/19) Past Eolfodp-Nakeqj-Dijupf Hx Past Med/Social Hx: Reviewed Nursing Past Med/Soc Hx, Reviewed and Corrections made Patient Social History Marrital Status: single Employed/Student: unemployed Alcohol Use: Regular Use Alcohol Beverage of Choice: Whiskey Recreational Drug Use: Yes Drug of Choice: marijuana Smoking Status: Current Everyday Smoker Type Used: Cigarettes 2nd Hand Smoke Exposure: Yes Physical Abuse Screen: No Sexual Abuse: No Recent Foreign Travel: No Contact w/other who traveled: No Recent Hopitalizations: No Recent Infectious Disease Expo: No Seasonal Allergies Seasonal Allergies: No Past Medical History Respiratory: COPD Cardiac: Hypertension Neurological: Headaches /Migraines Genitourinary: Renal Failure Gastrointestinal: Gastroesophageal Reflux, Quezada's Esophagus, Pancreatitis Endocrine: Diabetes, Insulin dep Are Your Blood Sugars Over 250: Yes History of Blood Disorders: No Review of Systems Constitutional: see HPI Respiratory: cough Cardiovascular: chest pain Gastrointestinal: abdominal pain, loss of appetite Physical Exam Physical Exam Vital Signs Vital Signs - First Documented Capillary Refill : Less Than 3 Seconds Height, Weight, BMI Height: 5'9.00" Weight: 144lbs. 2.0oz. 65.733375ih; 19.91 BMI Method:Stated General Appearance: No Apparent Distress, Anxious, Chronically ill, Thin Eyes: Right Eye Normal Inspection, Right Eye PERRL HEENT: PERRL/EOMI, Normal ENT Inspection, Pharynx Normal, Moist Mucous Membranes Neck: Full Range of Motion, Normal Inspection, Non Tender Respiratory: Chest Non Tender, No Accessory Muscle Use, No Respiratory Distress, Crackles, Decreased Breath Sounds, Wheezing Cardiovascular: Regular Rate, Rhythm, No Edema, No Gallop, No JVD, No Murmur, Normal Peripheral Pulses Gastrointestinal: Normal Bowel Sounds, No Organomegaly, No Pulsatile Mass, Soft, Tenderness Back: Normal Inspection, No CVA Tenderness, No Vertebral Tenderness Extremity: Normal Capillary Refill, Normal Inspection, Normal Range of Motion, Non Tender, No Calf Tenderness, No Pedal Edema Neurologic/Psychiatric: Alert, Oriented x3, No Motor/Sensory Deficits, Normal Mood/Affect Skin: Normal Color, Warm/Dry Lymphatic: No Adenopathy Results Results/Procedures Labs Laboratory Tests 11/22/19 07:38 Patient resulted labs reviewed. Assessment/Plan Admission Diagnosis Assessment: Chest pain r/o ACS Smoker Wheezes on lung exam Smoker ETOHic Chronic pancreatitis with pseudocyst formation Non-compliance with medical treatments and meds h/o hepatic thrombosis Leukocytosis with normal procalcitonin no evidence of bacterial infection requiring abx administration empirically Plan: Pain meds Cardiology and general surgery consultation Insulin Nebs Ahsanulaalba Difficult situation given severe non-compliance with all medical treatments Admission Status: Observation Diagnosis/Problems Diagnosis/Problems (1) Chest pain Status: Acute (2) Smoker (3) Rales (4) Chronic pancreatitis (5) Abdominal pain (6) Leukocytosis (7) Pseudocyst of pancreas (8) Uncontrolled diabetes mellitus Status: Acute (9) Noncompliance with medication regimen Status: Acute Clinical Quality Measures AMI/AHF: ASA po Prior to arrival: Yes DVT/VTE Risk/Contraindication: Risk Factor Score Per Nursin RFS Level Per Nursing on Admit: 4+=Very High SILVIA RODGERS DO Nov 22, 2019 17:58
[2019-11-22] MEDS ORDERED: ONDANSETRON 4 MG (ZOFRAN) ORAL DISSOLVE TAB PO PRN (18:00)
[2019-11-22] MEDS ORDERED: DOCUSATE SODIUM 100 MG (COLACE) CAP PO PRN (18:00)
[2019-11-22] MEDS ORDERED: CALCIUM CARBONATE 500 MG (TUMS) TAB.CHEW PO PRN (18:00)
[2019-11-22] MEDS ORDERED: diphenhydrAMINE 25 MG TAB (BENADRYL) PO PRN (18:00)
[2019-11-22] MEDS ORDERED: SUCRALFATE 1 GM (CARAFATE) TAB PO ONE (18:00)
[2019-11-22] MEDS ORDERED: MELATONIN 3 MG TABLET PO PRN (18:00)
[2019-11-22] MEDS ORDERED: PANTOPRAZOLE 40 MG (PROTONIX) TAB PO ONE (18:00)
[2019-11-22] MEDS ORDERED: ACETAMINOPHEN 500 MG TAB (TYLENOL) PO PRN (18:00)
[2019-11-22] MEDS: ENOXAPARIN 40 MG/0.4 ML (LOVENOX) SYR SC SCH (18:22)
[2019-11-22] MEDS: HYDROmorphone 2 MG/ML VIAL (DILAUDID) IV PRN ×2 (18:25→23:20)
--- NOTE | 2019-11-22 18:58 | NUR ---
DR AGUILAR NOTIFIED OF TROP <0.028 PER REQUEST
[2019-11-22 19:46] VITALS: BP 114/74
[2019-11-22] MEDS: SENNA W/DOCUSATE (SENOKOT S) TABLET PO SCH (20:56)
[2019-11-22] MEDS: MONTELUKAST 10 MG (SINGULAIR) TAB PO SCH (20:57)
[2019-11-22] MEDS: inSUlin ASPART (NovoLOG) 1 UNIT/0.01 ML (CHARGE PER UNIT) SC SCH (20:57)
[2019-11-22] MEDS: SUCRALFATE 1 GM (CARAFATE) TAB PO SCH (20:57)
[2019-11-23 00:10] VITALS: BP 121/68
--- NOTE | 2019-11-23 01:12 | Consultation - Surgery ---
History of Present Illness History of Present Illness Patient Consulted On(domi/time) 11/22/19 23:41 Date Seen by Provider: Nov 22, 2019 Time Seen by Provider: 23:41 History of Present Illness Surgery asked to consult regarding Abdominal pain. HPI per ED: The patient is a 49-year-old male who presents for evaluation of chest pain which started yesterday. EMS states they have transported the patient for similar chest pain many times in the last 6-12 months. He is a history of insulin-dependent diabetes but has been noncompliant with his medication and his sugar today read as "high" by EMS. He states he used to be an alcoholic but is not had any since August 29. He states that he had a "mild heart attack" but is never received a stent or any cardiac procedures. Pain is in his lower sternal chest radiating to his back. He denies history of peptic ulcer disease or pancreatitis. He is alert and oriented 4, calm, and appears to be in no distress at this time. EMS gave the patient aspirin, nitroglycerin, morphine, and a liter of NS in route to the hospital. He denies fevers or chills, cough, shortness of breath, abdominal pain, diaphoresis, nausea or vomiting, palpitations, dizziness or syncope. Timing/Duration: 24 hours Severity/Quality: moderate Location: substernal Radiation: back Activities at Onset: none Prior CP/Workup: heart attack (states had a "mild heart attack" but cannot provide additional details) ASA po FISH AGENT: Yes NTG SL FISH AGENT: Yes Associated Symptoms: denies symptoms When I saw pt tonight he stated he has always had this abdominal pain, it is not new. Rating the pain as minimal; maybe 3-4 out of 10. Pt has hx of chronic pancreatitis and is an uncontrolled DM with multiple episodes of DKA. Allergies and Home Medications Allergies Coded Allergies: No Known Drug Allergies (Unverified , 01/14/19) Home Medications Insulin Aspart 300 Units/3 Ml Solution, 10 UNITS SQ AC #10 PENS RUN THROUGH [address] [employer] Prescribed by: MICAH SHAHID on 01/15/19 1338 Insulin Detemir 100 Unit/1 Ml Insuln.pen, 40 UNIT SQ HS #10 RUN TH[address]OUGH [facility] [facility] [address] [employer] Prescribed by: MICAH SHAHID on 01/15/19 1338 Patient Home Medication List Home Medication List Reviewed: Yes Past Mhgzjnn-Oclazv-Pvlpmo Hx Patient Social History Alcohol Use: Regular Use Recreational Drug Use: Yes Drug of Choice: marijuana Smoking Status: Current Everyday Smoker Type Used: Cigarettes 2nd Hand Smoke Exposure: Yes Recent Foreign Travel: No Contact w/Someone Who Travel: No Recent Infectious Disease Expo: No Recent Hopitalizations: No Physical Abuse Screen: No Sexual Abuse: No Seasonal Allergies Seasonal Allergies: No Surgeries History of Surgeries: No Respiratory History of Respiratory Disorde: Yes Respiratory Disorders: Pneumonia, COPD, Emphysema Cardiovascular History of Cardiac Disorders: Yes Cardiac Disorders: Hypertension Neurological History of Neurological Disord: Yes Neurological Disorders: Headaches /Migraines Genitourinary History of Genitourinary Disor: Yes Genitourinary Disorders: Renal Failure Gastrointestinal History of Gastrointestinal Di: Yes (Chronic Pancreatitis due to alcoholism.) Gastrointestinal Disorders: Gastroesophageal Reflux, Quezada's Esophagus, Pancreatitis Musculoskeletal History of Musculoskeletal Dis: No Endocrine History of Endocrine Disorders: Yes Endocrine Disorders: Diabetes, Insulin dep HEENT History of HEENT Disorders: No Cancer History of Cancer: No Psychosocial History of Psychiatric Problem: No Integumentary History of Skin or Integumenta: No Blood Transfusions History of Blood Disorders: No Family Medical History Significant Family History: Diabetes (Mother) Review of Systems-General Constitutional: fever, malaise EENTM: blurred vision; No mouth pain, No mouth swelling, No epistaxis Respiratory: No cough, No dyspnea on exertion, No phlegm; short of breath Cardiovascular: chest pain; No Hx of Intervention Gastrointestinal: abdominal pain; No jaundice; loss of appetite, nausea, vomiting Genitourinary: dysuria, frequency, hesitancy Musculoskeletal: joint pain, joint swelling, muscle pain, muscle stiffness Skin: No change in color, No change in hair/nails Psychiatric/Neurological: Denies Anxiety, Denies Depressed, Denies Seizure, Denies Weakness Other pt denies any hx of abnormal bleeding or bruising Physical Exam-General Problems Physical Exam Vital Signs Vital Signs - First Documented Capillary Refill : Less Than 3 Seconds General Appearance: WD/WN, no apparent distress Eyes: Bilateral Eye PERRL, Bilateral Eye EOMI HEENT: No scleral icterus (R), No scleral icterus (L); other (moist oral mucosa) Neck: non-tender, supple Respiratory: lungs clear, normal breath sounds, no respiratory distress, no acc essory muscle use Cardiovascular: regular rate, rhythm, no murmur Gastrointestinal: soft, no organomegaly, no pulsatile mass, tenderness (mostly in upper abdomen), hernia (small umbilical hernia) Back: no CVA tenderness, no vertebral tenderness Extremities: no pedal edema, no calf tenderness, normal capillary refill Neurologic/Psychiatric: alert, oriented x 3 Skin: normal color, warm/dry Lymphatic: no adenopathy (neck, axilla or groin) Data Review Labs Laboratory Tests 11/22/19 07:38: White Blood Count 15.1H, Red Blood Count 4.55, Hemoglobin 11.5L, Hematocrit 36L, Mean Corpuscular Volume 79L, Mean Corpuscular Hemoglobin 25, Mean Corpuscular Hemoglobin Concent 32, Red Cell Distribution Width 15.8H, Platelet Count 369, Mean Platelet Volume 10.0, Neutrophils (%) (Auto) 81H, Lymphocytes (%) (Auto) 12, Monocytes (%) (Auto) 6, Eosinophils (%) (Auto) 1, Basophils (%) (Auto) 0, Neutrophils # (Auto) 12.2H, Lymphocytes # (Auto) 1.8, Monocytes # (Auto) 0.9, Eosinophils # (Auto) 0.1, Basophils # (Auto) 0.1, Neutrophils % (Manual) 80, Lymphocytes % (Manual) 12, Monocytes % (Manual) 2, Eosinophils % (Manual) 1, Basophils % (Manual) 1, Metamyelocytes % 1, Myelocytes % 1, Band Neutrophils 2, Prothrombin Time 12.1L, INR Comment 0.9, Activated Partial Thromboplast Time 30, Sodium Level 130L, Potassium Level 5.7H, Chloride Level 90L, Carbon Dioxide Level 29, Anion Gap 11, Blood Urea Nitrogen 19H, Creatinine 0.66, Estimat Glomerular Filtration Rate > 60, BUN/Creatinine Ratio 29, Glucose Level 720*H, Calcium Level 9.6, Corrected Calcium 9.6, Total Bilirubin 0.2, Aspartate Amino Transf (AST/SGOT) 30, Alanine Aminotransferase (ALT/SGPT) 28, Alkaline Phosphatase 170H, Troponin I < 0.30, Pro-B-Type Natriuretic Peptide 68.9, Total Protein 7.2, Albumin 4.0, Amylase Level 64, Lipase 31 11/22/19 07:52: Glucometer > 600*H 11/22/19 09:06: Glucometer 393H 11/22/19 10:26: Glucometer 308H 11/22/19 15:59: Glucometer 337H 11/22/19 18:11: Troponin I < 0.028, Procalcitonin 0.04 11/22/19 20:31: Glucometer 487*H 11/22/19 21:05: Troponin I < 0.028 Assessment/Plan Assessment/Plan Assessment/Plan Abdominal pain - chronic Leukocytosis DKA Hyperkalemia Hyponatremia Pt is an uncontrolled DM, with multiple episodes of DKA because of his non- compliance. He has severe electrolyte abnormalities which may improve when the DKA gets better. His abdominal pain is chronic and at this point does not feel surgical in nature. I will reexamine his abdomen in the morning. Recheck labs. Clinical Quality Measures AMI/AHF: ASA po Prior to arrival: Yes DVT/VTE Risk/Contraindication: Risk Factor Score Per Nursin RFS Level Per Nursing on Admit: 4+=Very High NUVIA MALONE DO Nov 23, 2019 01:12
[2019-11-23] MEDS: HYDROmorphone 2 MG/ML VIAL (DILAUDID) IV PRN ×10 (02:04→23:08)
[2019-11-23] MEDS: RT-ALBUTEROL/IPRATROPIUM 3 ML (DUONEB) VIAL INH SCH ×5 (02:18→20:17)
[2019-11-23] MEDS: ADVAIR HFA 115/21 MCG INHALER 8 GM IH SCH ×4 (02:18→20:16)
[2019-11-23 04:00] VITALS: BP 114/81
[2019-11-23] MEDS: inSUlin ASPART (NovoLOG) 1 UNIT/0.01 ML (CHARGE PER UNIT) SC SCH ×4 (05:38→20:38)
[2019-11-23] MEDS: SUCRALFATE 1 GM (CARAFATE) TAB PO SCH ×4 (06:24→20:38)
[2019-11-23 07:01] LABS: BASOPHILS # (AUTO) 0.1 10^3/uL (0.0-0.1); BASOPHILS % (AUTO) 0 % (0-10); EOSINOPHILS # (AUTO) 0.4 10^3/uL (0.0-0.3); EOSINOPHILS % (AUTO) 2 % (0-10); HEMATOCRIT 36 % (40-54); HEMOGLOBIN 11.9 G/DL (13.3-17.7); LYMPHOCYTES # (AUTO) 5.6 X 10^3 (1.0-4.0); LYMPHOCYTES % (AUTO) 34 % (12-44); MEAN CORPUSCULAR HEMOGLOBIN 26 PG (25-34); MEAN CORPUSCULAR HGB CONC 33 G/DL (32-36); MEAN CORPUSCULAR VOLUME 78 FL (80-99); MONOCYTES # (AUTO) 1.6 X 10^3 (0.0-1.0); MONOCYTES % (AUTO) 10 % (0-12); NEUTROPHILS # (AUTO) 8.7 X 10^3 (1.8-7.8); NEUTROPHILS % (AUTO) 53 % (42-75); PLATELET COUNT 445 10^3/uL (130-400); RED CELL DISTRIBUTION WIDTH 16.5 % (10.0-14.5); WHITE BLOOD COUNT 16.4 10^3/uL (4.3-11.0)
[2019-11-23 07:11] LABS: ALANINE AMINOTRANSFERASE 27 U/L (0-55); ALBUMIN 4.2 GM/DL (3.2-4.5); ALKALINE PHOSPHATASE 153 U/L (40-136); BILIRUBIN,TOTAL 0.2 MG/DL (0.1-1.0); BUN/CREATININE RATIO 19; CALCIUM 10.1 MG/DL (8.5-10.1); CARBON DIOXIDE 27 MMOL/L (21-32); CHLORIDE 94 MMOL/L (98-107); CREATININE SERUM 0.77 MG/DL (0.60-1.30); GFR ESTIMATED > 60; POTASSIUM 4.4 MMOL/L (3.6-5.0); SODIUM 132 MMOL/L (135-145); TOTAL PROTEIN 7.4 GM/DL (6.4-8.2)
[2019-11-23 07:13] LABS: GLUCOSE 60 MG/DL (70-105)
[2019-11-23] MEDS: ASPIRIN E.C. 81 MG (ECOTRIN) TAB PO SCH (07:36)
[2019-11-23] MEDS: PANTOPRAZOLE 40 MG (PROTONIX) TAB PO SCH (07:36)
[2019-11-23] MEDS: NICOTINE 21 MG (NICODERM) PATCH TD SCH (07:37)
[2019-11-23] MEDS: THIAMINE INJECTION 100 MG, FOLIC ACID INJECTION 1 MG, VITAMIN MULTI INJECTION 10 ML, MA... IV SCH ×5 (07:42)
[2019-11-23] MEDS: ALPRAZolam 0.25 MG (XANAX) TAB PO PRN ×2 (07:42→18:07)
[2019-11-23] MEDS: SENNA W/DOCUSATE (SENOKOT S) TABLET PO SCH ×2 (07:54→20:38)
[2019-11-23 08:00] VITALS: BP 111/79
--- NOTE | 2019-11-23 10:18 | Progress Note - Surgery ---
Subjective Time Seen by a Provider: 09:15 Subjective/Events-last exam Pt seen and examined, eating breakfast. States his pain hasn't changed at all; from lower chest (xypoid area) to lower abdomen. Review of Systems General: No Chills, No Night Sweats; Fatigue Pulmonary: No Dyspnea, No Cough Cardiovascular: Chest Pain; No: Palpitations Gastrointestinal: Nausea, Abdominal Pain; No: Vomiting Objective Exam Vital Signs Date Time Temp Pulse Resp B/P (MAP) Pulse Ox O2 Delivery O2 Flow Rate FiO2 11/23/19 07:09 92 Room Air 11/23/19 07:00 60 11/23/19 04:00 36.0 64 20 114/81 (92) 96 Room Air 11/23/19 01:00 62 11/23/19 00:10 36.8 72 22 121/68 (85) 95 Room Air 11/22/19 20:00 97 Room Air 11/22/19 19:46 36.6 71 18 114/74 (87) 94 Room Air 11/22/19 19:00 90 11/22/19 17:19 96 Room Air 11/22/19 16:59 71 11/22/19 16:16 36.4 65 18 110/74 (86) 96 Room Air 11/22/19 16:14 36.4 65 18 110/74 96 Room Air 11/22/19 15:05 35.6 73 16 117/68 95 Room Air 11/22/19 13:33 16 131/61 (84) 95 Room Air 11/22/19 11:51 68 18 113/69 (84) 95 Room Air I & O 11/23/19 07:00 Intake Total 2242 ml Output Total 2050 ml Balance 192 ml Capillary Refill : Less Than 3 Seconds General Appearance: No Apparent Distress, Anxious, Chronically ill, Thin HEENT: PERRL/EOMI, Moist Mucous Membranes Neck: Full Range of Motion, Normal Inspection, Non Tender Respiratory: Chest Non Tender, No Accessory Muscle Use, No Respiratory Distress, Crackles, Decreased Breath Sounds, Wheezing Cardiovascular: Regular Rate, Rhythm, No Murmur, Normal Peripheral Pulses Gastrointestinal: soft, no organomegaly, no pulsatile mass, tenderness (mostly in upper abdomen), hernia (small umbilical hernia) Extremity: No Calf Tenderness, No Pedal Edema Neurologic/Psychiatric: Alert, Oriented x3 Skin: Normal Color, Warm/Dry Results Lab Laboratory Tests 11/22/19 10:26: Glucometer 308H 11/22/19 15:59: Glucometer 337H 11/22/19 18:11: Troponin I < 0.028, Procalcitonin 0.04 11/22/19 20:31: Glucometer 487*H 11/22/19 21:05: Troponin I < 0.028 11/23/19 05:17: Glucometer 80 11/23/19 05:36: Troponin I < 0.028, White Blood Count 16.4H, Red Blood Count 4.61, Hemoglobin 11.9L, Hematocrit 36L, Mean Corpuscular Volume 78L, Mean Corpuscular Hemoglobin 26, Mean Corpuscular Hemoglobin Concent 33, Red Cell Distribution Width 16.5H, Platelet Count 445H, Mean Platelet Volume 11.0H, Neutrophils (%) (Auto) 53, Lymphocytes (%) (Auto) 34, Monocytes (%) (Auto) 10, Eosinophils (%) (Auto) 2, Basophils (%) (Auto) 0, Neutrophils # (Auto) 8.7H, Lymphocytes # (Auto) 5.6H, Monocytes # (Auto) 1.6H, Eosinophils # (Auto) 0.4H, Basophils # (Auto) 0.1, Sodium Level 132L, Potassium Level 4.4, Chloride Level 94L, Carbon Dioxide Level 27, Anion Gap 11, Blood Urea Nitrogen 15, Creatinine 0.77, Estimat Glomerular Filtration Rate > 60, BUN/Creatinine Ratio 19, Glucose Level 60*L, Calcium Level 10.1, Corrected Calcium 9.9, Total Bilirubin 0.2, Aspartate Amino Transf (AST/SGOT) 22, Alanine Aminotransferase (ALT/SGPT) 27, Alkaline Phosphatase 153H , Total Protein 7.4, Albumin 4.2 Assessment/Plan Assessment/Plan Assessment/Plan Abdominal pain - chronic Leukocytosis DKA Hyperkalemia - resolved Hyponatremia - improving but need to go very slowly Pt is an uncontrolled DM, with multiple episodes of DKA because of his non- compliance. He has severe electrolyte abnormalities which may improve when the DKA gets better. Abdominal pain is about the same; not sure what to do with this chronic, doubt it is surgical in nature. CT Abd/Pelvis may need to be done to make sure there is nothing going on; continue to check labs. Clinical Quality Measures AMI/AHF: ASA po Prior to arrival: Yes DVT/VTE Risk/Contraindication: Risk Factor Score Per Nursin RFS Level Per Nursing on Admit: 4+=Very High NUVIA MALONE DO Nov 23, 2019 10:18
[2019-11-23] MEDS ORDERED: HYDROmorphone 2 MG/ML VIAL (DILAUDID) ONE (11:31)
--- NOTE | 2019-11-23 11:39 | NUR ---
BLOOD SUGAR 403. 12 UNITS NOVOLOG GIVEN PER ORDER'S.
--- NOTE | 2019-11-23 11:44 | Progress Note - Hospitalist ---
Subjective HPI/CC On Admission Date Seen by Provider: Nov 23, 2019 Time Seen by Provider: 10:00 Chief complaint: Chest pain History present illness: This is a 49-year-old white male of Dr. Wolfe in [place] who previously doctored with Dr. 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 Patient reported chest pain upon arrival to nitroglycerin were obtain EKG showed no ST elevation or changes and cardiology was consulted and stat troponin was negative and will be repeated in 3 hours of chest pain continues. He has a longstanding history of chronic pancreatitis with pseudocyst in the past and he reports his last alcoholic drink was August 29 of this year. Patient is completely noncompliant with all insulin at all medication that he is supposed to be on. Very difficult to manage considering how noncompliant he is. We will maintain admission status treat severe pain with narcotics initiate nebulizer treatments check pro calcitonin for elevation in case coarse breath sounds are from bronchitis and will consult general surgery Dr. Du to evaluate abdominal pain. DC note 09/2016: Brief Hospital Course: The patient was admitted and the following issues were addressed during this hospitalization: (with pertinent details). . Patient had significant past medical history of alcoholism chronic pancreatitis and possible pancreatic pseudocyst with concern for partial gastric outlet obstruction was transferred from outside facility via air ambulance due to HHS. Patient had a blood glucose measured at outside facility of 2300, which had decreased to 900 by the time he arrived at . With an insulin drip patient rapidly corrected and after increased stabilization he was able to be transferred from the ICU to the floor. Imaging showed no progression of previous issues, and endocrinology was consulted to help manage patient's hyperglycemia. Patient was able to tolerate food and able to ambulate 500 feet with no assistance, and with insulin regimen his blood glucose levels significantly improved. Diabetic education was consulted and after education the patient expressed ability to take care of insulin administration by himself. Patient has significant social challenges due to lack of employment and cost of insulin, however with voucher from and resources made available by social work patient felt that he would be able to acquire his medicines. Patient was discharged in stable condition, with insulin and blood glucose supplies, with transportation back to his home, with long-term medications are arranged. Patient will need follow-up with local PCP. Subjective/Events-last exam Patient still having a lot of pain CT ordered by Dr Du revealing chronic pancreatitis and pseudocyst formation and constipation so I ordered laxatives Cardiology management appreciated No pain otherwise Lungs seem better Very non-compliant with all interventions and then can't understand why he feels badly SW did reach out to [facility] and Rxed will be sent with him to get filled Review of Systems General: Fatigue Pulmonary: Dyspnea, Cough Gastrointestinal: Abdominal Pain, Constipation Objective Exam Vital Signs Vital Signs Date Time Temp Pulse Resp B/P (MAP) Pulse Ox O2 Delivery O2 Flow Rate FiO2 11/23/19 12:07 71 11/23/19 12:00 36.1 18 96/59 (71) 95 Room Air Capillary Refill : Less Than 3 Seconds General Appearance: No Apparent Distress, WD/WN, Chronically ill, Thin Respiratory: No Accessory Muscle Use, No Respiratory Distress, Decreased Breath Sounds, Wheezing Cardiovascular: Regular Rate, Rhythm Neurologic/Psychiatric: Alert, Oriented x3, No Motor/Sensory Deficits, Normal Mood/Affect Results/Procedures Lab Laboratory Tests 11/23/19 05:36 Patient resulted labs reviewed. Assessment/Plan Assessment and Plan Assess & Plan/Chief Complaint Assessment: Chest pain r/o ACS Smoker Wheezes on lung exam improved today on Nebs and ICS Smoker ETOHic Chronic pancreatitis with pseudocyst formation CT ordered by Dr Du Non-compliance with medical treatments and meds h/o hepatic thrombosis Leukocytosis with normal procalcitonin no evidence of bacterial infection requiring abx administration empirically Constipation on CT scan ordered laxatives Plan: Pain meds Cardiology and general surgery consultation Insulin Nebs Singulair CT scan Difficult situation given severe non-compliance with all medical treatments Diagnosis/Problems Diagnosis/Problems (1) Chest pain Status: Acute (2) Smoker (3) Rales (4) Chronic pancreatitis (5) Abdominal pain (6) Leukocytosis (7) Pseudocyst of pancreas (8) Uncontrolled diabetes mellitus Status: Acute (9) Noncompliance with medication regimen Status: Acute Clinical Quality Measures AMI/AHF: ASA po Prior to arrival: Yes DVT/VTE Risk/Contraindication: Risk Factor Score Per Nursin RFS Level Per Nursing on Admit: 4+=Very High JARED RODGERS DO Nov 23, 2019 11:44
[2019-11-23 12:00] VITALS: BP 96/59
--- NOTE | 2019-11-23 12:30 | NUR ---
NPO FOR CT SCAN.
[2019-11-23] MEDS ORDERED: HOLD METFORMIN - RECEIVED CONTRAST 20 ML VIAL IV SCH (12:45)
[2019-11-23] MEDS ORDERED: NS 100 ML (IVPB) BAG IV ONE (12:45)
[2019-11-23] MEDS ORDERED: CATHETER FLUSH 10 ML SYR IV PRN (12:45)
[2019-11-23] MEDS ORDERED: IOHEXOL 350 MG/ML 100 ML (OMNIPAQUE 350) VIAL IV ONE (12:45)
--- NOTE | 2019-11-23 13:09 | NUR ---
DR. RODGERS NOTIFIED OF BLOOD SUGAR 408 . 12 UNITS NOVOLOG GIVEN SQ PER DR. DUMONT'S.
--- NOTE | 2019-11-23 13:11 | NUR ---
ADIEL visited with the patient for social service consult. Plan: The patient will return home in [place]. He reports his step dad is the one who usually provides transportation in the past. Medications: The patient has not been able to afford his insulin and stated he stopped taking it for approximally a month. He did state that he has 2 bottles of insulin from July, that he found. ADIEL contacted the [facility] in [place] who stated they have an [facility] in [place] (5 miles away). ADIEL contacted the pharmacy ([phone]) to get insulin prices. They verbalized that the Levemir on the 340B will be $11.53 (for vial) for a one month supply. If the patient wants to use Pens the cost on 340[address] will be $15 for 5 pens (3ml per pen). Supplies: ADIEL contacted B[facility]a with wound care to see if supplies were available. He verbalized he had pen needles, strips,and glucometer. Beka brought a bag full of supplies to the patient in the room. Summary: This CHRISTIANO/MELITA has had multiple visits with the patient. He reports that he is currently unemployed and disabled but unable to obtain social security disability payments. The patient states they tell him "he's not sick enough". The patient appears to be upset about his current social situation. He reports that he is going to apply for medicaid and disability again. The patient reports that he doesn't have any money, a car, or insurance/assistance. He lives "50ft" away from his parents house in a camper. He states that he uses an extension cord hooked up to his parents to get electricity. His father was getting him food and commodities in [place] but now his dad isn't going there with the virus outbreak. He gets food once a month from a pantry. He reports that his parents do not help him, but they will help his sister. The patient does not have a vehicle and relies on others to help him get things. He states he will try his best to stay compliant with his medications. Will continue to follow.
[2019-11-23] MEDS ORDERED: inSUlin ASPART (NovoLOG) 1 UNIT/0.01 ML (CHARGE PER UNIT) SC ONE (13:15)
--- NOTE | 2019-11-23 13:44 | Diagnostic Imaging Report ---
PROCEDURE: CT abdomen and pelvis with contrast. TECHNIQUE: Multiple contiguous axial images were obtained through the abdomen and pelvis after administration of intravenous contrast. Auto Exposure Controls were utilized during the CT exam to meet ALARA standards for radiation dose reduction. INDICATION: Upper abdominal pain and leukocytosis. COMPARISON: No prior studies are available for comparison. FINDINGS: Imaging through lung bases does show some interstitial fibrotic scarring. No discrete liver mass is detected. The gallbladder is unremarkable. No definite biliary ductal dilatation is seen. Pancreas does contain numerous calcifications in the head as well as body and tail. There appears to be dilatation of the pancreatic duct. In addition, there is a slightly elongated fluid collection located just cephalad to the pancreatic body, perhaps a pseudocyst. This is approximately 12 mm in thickness x approximately 4 to 5 cm cephalocaudal. Features are suggestive of chronic pancreatitis. Spleen is unremarkable. No adrenal mass is detected. Kidneys are unremarkable. Aorta is nonaneurysmal. There is a large amount of stool throughout the colon, consistent with constipation. The small bowel is normal in caliber. No definite obstruction is seen. The bladder is unremarkable. Prostate is unremarkable. No free fluid or fluid collection is identified. Bony structures are nonacute. IMPRESSION: 1. Findings suggestive of chronic pancreatitis with probable pseudocyst along the superior aspect of the pancreas. No findings to suggest acute pancreatitis are seen. 2. Large stool volume throughout the colon, consistent with constipation. Dictated by: Dictated on workstation # [id number]
--- NOTE | 2019-11-23 14:00 | NUR ---
PT. EATING LUNCH. WILL GET BLOOD SUGAR 2 HOURS AFTER EATING.
--- NOTE | 2019-11-23 14:52 | Consultation-Cardiology ---
HPI-Cardiology Cardiology Consultation: Date of Consultation 11/23/19 Date of Admission Attending Physician Silvia Rodgers DO Admitting Physician [place] Wolfe MD Consulting Physician Yareli HELMS MD HPI: Time Seen by a Provider: 12:30 Chief Complaint: Lower chest pain, upper abdominal discomfort This is a 49-year-old gentleman who presented with lower chest pain and upper abdominal discomfort. According to the patient he is been having chest pain for the last 6-12 months. He has history of uncontrolled insulin-requiring diabetes and is noncompliant with medications. He presents with DKA. He has history of significant alcohol use but denies significant alcohol use at this point in time. He says that he is been having chest pain and upper abdominal discomfort for at least 6-12 months and has been worked up in numerous [facility] ospitals. According to him he is had nuclear stress testing as well. He has not had coronary angiography. The patient denies any cough, shortness of breath. The patient is not in any distress when I saw him but he continues to complain of chest pain. No significant pertinent family history. Social history as mentioned above. Review of Systems-Cardiology Review of Systems Constitutional: As described under HPI; No As described under HPI, No no symptoms reported, No chills, No fever, No lightheadedness Eyes: No As described under HPI, No no symptoms reported, No blindness, No blurred vision, No contact lenses, No drainage, No decreased acuity, No foreign body sensation, No pain, No vision change Ears/Nose/Throat: No As described under HPI, No no symptoms reported, No chronic hearing loss, No ear discharge, No ear pain, No nasal drainage, No ulcerations Respiratory: No no symptoms reported; As described under HPI; No As described under HPI, No cough, No orthopnea, No shortness of breath, No SOB with excertion Cardiovascular: No no symptoms reported; As described under HPI; No As described under HPI; chest pain; No edema, No irregular heart rate, No lightheadedness, No palpitations Gastrointestinal: No no symptoms reported, No As described under HPI, No abdomen distended; abdominal pain; No blood streaked bowels, No constipation, No diarrhea, No nausea, No vomiting, No stool coloration changes Genitourinary: No As described under HPI, No burning, No dysuria, No discharge, No frequency, No flank pain, No hematuria, No urgency Skin: No rash, No skin related problems, No ulcerations Psychiatric/Neurological: No anxiety, No depression, No seizure, No focal weakness, No syncope Hematologic: No bleeding abnormalities All Other Systems Reviewed Negative Unless Noted: Yes [id number] Hx Patient Social History Marrital Status: single Employed/Student: unemployed Alcohol Use: Regular Use Recreational Drug Use: Yes Drug of Choice: marijuana Smoking Status: Current Everyday Smoker Type Used: Cigarettes 2nd Hand Smoke Exposure: Yes Recent Foreign Travel: No Recent Infectious Disease Expo: No Hospitalization with Isolation: Denies Physical Abuse Screen: No Sexual Abuse: No Past Medical History PMH As described under Assessment. Allergies and Home Medications Allergies Coded Allergies: No Known Drug Allergies (Unverified , 01/14/19) Home Medications Aspirin 81 Mg Tablet.dr, 81 MG PO DAILY Prescribed by: SILVIA RODGERS on 11/24/19 1107 Fluticasone/Salmeterol 12 Gm Hfa.aer.ad, 0 PUFF IH RTBID Prescribed by: SILVIA RODGERS on 11/24/19 1107 Insulin Aspart 300 Units/3 Ml Solution, 10 UNITS SQ AC #10 PENS RUN THROUGH [address] [employer] Prescribed by: SILVIA RODGERS on 11/24/19 110 Insulin Detemir 100 Unit/1 Ml Insuln.pen, 20 UNIT SQ HS Prescribed by: SILVIA RODGERS on 11/24/19 110 Montelukast Sodium 10 Mg Tablet, 10 MG PO HS Prescribed by: SILVIA RODGERS on 11/24/19 1107 Oxycodone HCl 5 Mg Tablet, 10 MG PO TID PRN for PAIN-MODERATE (5-7) Prescribed by: SILVIA RODGERS on 11/24/19 1113 Pantoprazole Sodium 40 Mg Tablet.dr, 40 MG PO DAILY Prescribed by: SILVIA RODGERS on 11/24/19 1107 Patient Home Medication List Home Medication List Reviewed: Yes Physical Exam-Cardiology Physical Exam Vital Signs/I&O 11/24/19 11/24/19 11/24/19 11/24/19 06:59 07:00 07:38 08:00 Temp 36.9 Pulse 70 67 Resp 18 B/P (MAP) 100/65 (77) Pulse Ox 92 95 O2 Delivery Room Air Room Air Room Air 11/24/19 11/24/19 11:48 14:16 Temp 36.5 36.5 Pulse 79 79 Resp 20 20 B/P (MAP) 124/79 (94) 124/79 Pulse Ox 96 96 O2 Delivery Room Air Room Air 11/24/19 00:00 Intake Total 1180 ml Balance 1180 ml Capillary Refill : Less Than 3 Seconds Constitutional: appears stated age, AAO x 3; No apparent distress; well- developed, well-nourished HEENT: PERRL; No discharge; hearing is well preserved, oral hygience is good; No ulceration, No xanthelasmas are seen Neck: No carotid bruit; carotid pulses are 2 + bilaterally Respiratory: chest is bilaterally symmetric, lungs clear to auscultation Cardiovascular: regular rate-rhythm, S1 and S2 Gastrointestinal: soft, audible bowel sounds; No spleenomegaly Rectal: deferred Extremities: normal range of motion, non-tender, normal inspection; No clubbing, No cyanosis; no lower extremity edema bilateral; No significant edema Neurologic/Psychiatric: no motor/sensory deficits, alert, normal mood/affect, oriented x 3, power is 5/5 both on sides Skin: No rash, No ulcerations Lymphatic: no adenopathy (neck, axilla or groin) Data Review Labs Laboratory Tests 11/23/19 19:22: Glucometer 75 11/23/19 20:25: Glucometer 158H 11/24/19 03:26: Sodium Level 131L, Potassium Level 5.2H, Chloride Level 96L, Carbon Dioxide Level 25, Anion Gap 10, Blood Urea Nitrogen 16, Creatinine 0.75, Estimat Glomerular Filtration Rate > 60, BUN/Creatinine Ratio 21, Glucose Level 213H, Calcium Level 9.2, Corrected Calcium 9.3, Total Bilirubin 0.2, Aspartate Amino Transf (AST/SGOT) 26, Alanine Aminotransferase (ALT/SGPT) 27, Alkaline Phosphatase 127, Total Protein 6.7, Albumin 3.9 11/24/19 03:38: White Blood Count 9.7, Red Blood Count 4.34L, Hemoglobin 11.0L, Hematocrit 34L, Mean Corpuscular Volume 79L, Mean Corpuscular Hemoglobin 25, Mean Corpuscular Hemoglobin Concent 32, Red Cell Distribution Width 16.1H, Platelet Count 258, Mean Platelet Volume 11.1H, Neutrophils (%) (Auto) 66, Lymphocytes (%) (Auto) 24, Monocytes (%) (Auto) 8, Eosinophils (%) (Auto) 2, Basophils (%) (Auto) 0, Neutrophils # (Auto) 6.4, Lymphocytes # (Auto) 2.3, Monocytes # (Auto) 0.8, Eosinophils # (Auto) 0.2, Basophils # (Auto) 0.0 11/24/19 05:57: Glucometer 218H 11/24/19 11:01: Glucometer 298H ECG Impression ECG Initial ECG Rhythm: Normal Sinus A/P-Cardiology Assessment/Admission Diagnosis Chest pain, Abdominal pain, Severe diabetes/DKA Hypertension Tobaccoism Plan Negative serial troponin, negative EKG. Unlikely to be acute coronary syndrome. According to the patient he has been worked up for cardiac etiology recently in [place]. Stress test was negative a few Months ago. Chest pain nonspecific etiology, atypical in presentation, unlikely to be cardiac, responsive only to fentanyl. No EKG changes, cardiac enzymes were negative. I reassured him at this time, instructed him on starting aspirin and recommend a stress test as an outpatient. He can follow with his outpatient principal law clerk. Diabetes mellitus, DKA, significantly elevated on admission, gradually improved. Managed by the primary team. Tobaccoism, active smoker, educated on smoking cessation Occasional alcohol use, educated on avoiding alcohol History of marijuana use. Educated on avoiding illicit drug use. Hypertension, patient does not take any medication at home and blood pressure is better at this point. Continue to monitor Musculoskeletal pain, generalized body ache Noncompliance with medication Thank you for your consultation. Please call me if you have any questions. Connor Helms MD, FACP, FACC, FSCAI, FHRS, CCDS Interventional Cardiology Cardiac Electrophysiology Vascular Medicine and Endovascular Interventions Clinical Quality Measures AMI/AHF: ASA po Prior to arrival: Yes DVT/VTE Risk/Contraindication: Risk Factor Score Per Nursin RFS Level Per Nursing on Admit: 4+=Very High Yareli HELMS MD Nov 23, 2019 14:52
--- NOTE | 2019-11-23 15:10 | NUR ---
PT. STILL EATING LUNCH. STATED " I DON'T HAVE ANY TEETH. IT MIGHT TAKE A WHILE."
[2019-11-23] MEDS ORDERED: inSUlin (REGULAR) HUMAN 1 UNIT/0.01 ML (CHARGE PER UNIT) SC PRN (15:30)
[2019-11-23] MEDS ORDERED: polyethylene glycoL POWDER 17 GM (MIRALAX) PACK PO ONE (15:45)
[2019-11-23] MEDS ORDERED: MAGNESIUM CITRATE 300 ML BTL PO ONE (15:45)
[2019-11-23] MEDS ORDERED: FLEET ENEMA ADULT 1 EA BTL PR PRN (15:45)
[2019-11-23] MEDS ORDERED: GLYCERIN ADULT SUPPOSITORY PR PRN (15:45)
[2019-11-23] MEDS ORDERED: GLYCERIN ADULT SUPPOSITORY PR ONE (15:45)
[2019-11-23] MEDS ORDERED: FLEET ENEMA ADULT 1 EA BTL PR ONE (15:45)
[2019-11-23 16:36] VITALS: BP 110/63
[2019-11-23] MEDS: ENOXAPARIN 40 MG/0.4 ML (LOVENOX) SYR SC SCH (17:51)
[2019-11-23 19:59] VITALS: BP 104/72
[2019-11-23] MEDS: MONTELUKAST 10 MG (SINGULAIR) TAB PO SCH (20:38)
[2019-11-23] MEDS ORDERED: polyethylene glycoL POWDER 17 GM (MIRALAX) PACK PO SCH (21:00)
--- NOTE | 2019-11-23 21:00 | NUR ---
Notified Dr. Cortez that blood sugar initially at 1900 was 75 and was 158 an hour later. Received order to give 8 units of Levemir and she will review again in the morning.
[2019-11-24 00:15] VITALS: BP 110/79
[2019-11-24] MEDS: HYDROmorphone 2 MG/ML VIAL (DILAUDID) IV PRN ×2 (01:17→05:27)
[2019-11-24 04:06] LABS: BASOPHILS % (AUTO) 0 % (0-10); EOSINOPHILS # (AUTO) 0.2 10^3/uL (0.0-0.3); EOSINOPHILS % (AUTO) 2 % (0-10); HEMATOCRIT 34 % (40-54); LYMPHOCYTES # (AUTO) 2.3 X 10^3 (1.0-4.0); LYMPHOCYTES % (AUTO) 24 % (12-44); MEAN CORPUSCULAR HEMOGLOBIN 25 PG (25-34); MEAN CORPUSCULAR HGB CONC 32 G/DL (32-36); MEAN CORPUSCULAR VOLUME 79 FL (80-99); MEAN PLATELET VOLUME 11.1 FL (7.4-10.4); MONOCYTES # (AUTO) 0.8 X 10^3 (0.0-1.0); MONOCYTES % (AUTO) 8 % (0-12); NEUTROPHILS # (AUTO) 6.4 X 10^3 (1.8-7.8); NEUTROPHILS % (AUTO) 66 % (42-75); PLATELET COUNT 258 10^3/uL (130-400); RED CELL DISTRIBUTION WIDTH 16.1 % (10.0-14.5); WHITE BLOOD COUNT 9.7 10^3/uL (4.3-11.0)
[2019-11-24 04:27] LABS: ALANINE AMINOTRANSFERASE 27 U/L (0-55); ALBUMIN 3.9 GM/DL (3.2-4.5); ALKALINE PHOSPHATASE 127 U/L (40-136); BILIRUBIN,TOTAL 0.2 MG/DL (0.1-1.0); BUN/CREATININE RATIO 21; CALCIUM 9.2 MG/DL (8.5-10.1); CARBON DIOXIDE 25 MMOL/L (21-32); CHLORIDE 96 MMOL/L (98-107); CREATININE SERUM 0.75 MG/DL (0.60-1.30); GFR ESTIMATED > 60; GLUCOSE 213 MG/DL (70-105); POTASSIUM 5.2 MMOL/L (3.6-5.0); SODIUM 131 MMOL/L (135-145); TOTAL PROTEIN 6.7 GM/DL (6.4-8.2)
[2019-11-24 04:30] VITALS: BP 118/76
[2019-11-24] MEDS: inSUlin ASPART (NovoLOG) 1 UNIT/0.01 ML (CHARGE PER UNIT) SC SCH ×2 (06:18→11:18)
[2019-11-24] MEDS: SUCRALFATE 1 GM (CARAFATE) TAB PO SCH ×2 (06:18→11:26)
[2019-11-24] MEDS: RT-ALBUTEROL/IPRATROPIUM 3 ML (DUONEB) VIAL INH SCH (06:59)
[2019-11-24] MEDS: ADVAIR HFA 115/21 MCG INHALER 8 GM IH SCH (06:59)
[2019-11-24 07:38] VITALS: BP 100/65
[2019-11-24] MEDS: ASPIRIN E.C. 81 MG (ECOTRIN) TAB PO SCH (07:49)
[2019-11-24] MEDS: PANTOPRAZOLE 40 MG (PROTONIX) TAB PO SCH (07:50)
--- NOTE | 2019-11-24 07:50 | NUR ---
COMPLAINT OF CHEST PAIN AT THIS TIME. WHEN THIS RN ASKED PATIENT TO POINT TO WHERE IT WAS HURTING AND TO DESCRIBE HIS PAIN HE POINTED TO HIS STOMACH ONLY AND STATED IT WAS A CONSTANT ACHE. PATIENT ASKED FOR IV ONLY MEDICATIONS AT THIS TIME STATING " HE HAS NOT BEEN BEEN ABLE TO SLEEP SINCE HES BEEN HERE AND IV MEDICATIONS ARE THE ONLY THING THAT HELP" PATIENT WAS RESTING WITH EYES CLOSED AT THIS TIME AND DID NOT OPEN THEM TO TALK TO THIS RN. THIS RN STATED SHE WOULD BRING HIM ORAL MEDICATION THIS TIME AROUND SINCE HE WAS ALREADY LETHARGIC AND WE COULD TRY IV MEDICATION AT A LATER TIME. PATIENT AGREED TO ORAL MEDICATION BUT STATED WHEN HIS DOCTOR MADE ROUNDS HE WAS GOING TO HAVE THE ORAL MEDICATION DCD AND THE IV MEDICATION AND DOSE INCREASED.
[2019-11-24] MEDS: NICOTINE 21 MG (NICODERM) PATCH TD SCH (07:51)
[2019-11-24] MEDS: SENNA W/DOCUSATE (SENOKOT S) TABLET PO SCH (07:51)
--- NOTE | 2019-11-24 08:20 | NUR ---
THIS RN CHECKED ON PATIENT TO SEE IF ORAL PAIN MEDICATION WORKED. NO COMPLAINTS AT THIS TIME RESTING WITH EYES CLOSED
[2019-11-24] MEDS: THIAMINE INJECTION 100 MG, FOLIC ACID INJECTION 1 MG, VITAMIN MULTI INJECTION 10 ML, MA... IV SCH ×5 (08:34)
[2019-11-24] MEDS ORDERED: INSU100I14 SQ (11:07)
[2019-11-24] MEDS ORDERED: INSU100I29 SQ (11:07)
[2019-11-24] MEDS ORDERED: PANT40TA3 PO (11:07)
[2019-11-24] MEDS ORDERED: ASPI-983 PO (11:07)
[2019-11-24] MEDS ORDERED: MONT10TA26 PO (11:07)
[2019-11-24] MEDS ORDERED: FLUT12AE4 IH (11:07)
--- NOTE | 2019-11-24 11:08 | Discharge Summary ---
Discharge Summary Hospital Course Was the Problem List Reviewed?: Yes Problems/Dx: (1) Chest pain Status: Acute (2) Smoker (3) Rales (4) Chronic pancreatitis (5) Abdominal pain (6) Leukocytosis (7) Pseudocyst of pancreas (8) Uncontrolled diabetes mellitus Status: Acute (9) Noncompliance with medication regimen Status: Acute Hospital Course Date of Admission: Nov 22, 2019 at 10:20 Admission Diagnosis : Family Physician/Provider: [place] Wolfe MD Date of Discharge: 11/24/19 Discharge Diagnosis: acute on chronic abdominal pain from chronic pancreatitis with pseudocyst formation, chest pain negative troponins and cardiac w/u, smoker, COPD, non-compliance, DM OOC Hospital Course: Patient had a lengthy observation hospital course. Patient was admitted for chest pain and abdominal pain and aggressive pain meds were initiated. I reviewed [facility] records from 09/2018 and noted severe non-compliance with insulin and all other meds and recs which was longstanding. Cardiology was consulted and reviewed prior cardiac w/u and troponins negative r/o ACS. Dr Du evaluated the patient and CT ordered revealing pseudocyst formation which was the likely source of pain along with chronic pancreatitis. Smoking cessation was counseled along with the need to fill Rx at [facility] was recommended since it was open until 300pm per SW who called yesterday. Patient was malingering and constantly asking for Dilaudid IV pain meds but appeared to have no severe pain on clinical evaluation. 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 Labs and Pending Lab Test: Laboratory Tests 11/23/19 12:54: Glucometer 408*H 11/23/19 17:12: Glucometer 224H 11/23/19 19:22: Glucometer 75 11/23/19 20:25: Glucometer 158H 11/24/19 03:26: Sodium Level 131L, Potassium Level 5.2H, Chloride Level 96L, Carbon Dioxide Level 25, Anion Gap 10, Blood Urea Nitrogen 16, Creatinine 0.75, Estimat Glomerular Filtration Rate > 60, BUN/Creatinine Ratio 21, Glucose Level 213H, Calcium Level 9.2, Corrected Calcium 9.3, Total Bilirubin 0.2, Aspartate Amino Transf (AST/SGOT) 26, Alanine Aminotransferase (ALT/SGPT) 27, Alkaline Phosphatase 127, Total Protein 6.7, Albumin 3.9 11/24/19 03:38: White Blood Count 9.7, Red Blood Count 4.34L, Hemoglobin 11.0L, Hematocrit 34L, Mean Corpuscular Volume 79L, Mean Corpuscular Hemoglobin 25, Mean Corpuscular Hemoglobin Concent 32, Red Cell Distribution Width 16.1H, Platelet Count 258, Mean Platelet Volume 11.1H, Neutrophils (%) (Auto) 66, Lymphocytes (%) (Auto) 24, Monocytes (%) (Auto) 8, Eosinophils (%) (Auto) 2, Basophils (%) (Auto) 0, Neutrophils # (Auto) 6.4, Lymphocytes # (Auto) 2.3, Monocytes # (Auto) 0.8, Eosinophils # (Auto) 0.2, Basophils # (Auto) 0.0 11/24/19 05:57: Glucometer 218H Home Meds Active Levemir Flextouch (Insulin Detemir) 100 Unit/1 Ml Insuln.pen 20 Unit SQ HS Pantoprazole Sodium 40 Mg Tablet. 40 Mg PO DAILY Montelukast Sodium 10 Mg Tablet 10 Mg PO HS Advair Hfa 115-21 Mcg Inhaler (Fluticasone/Salmeterol) 12 Gm Hfa.aer.ad 0 Puff IH RTBID Aspirin EC (Aspirin) 81 Mg Tablet. 81 Mg PO DAILY Novolog Flexpen (Insulin Aspart) 300 Units/3 Ml Solution 10 Units SQ AC #10 PENS RUN THROUGH [address] [employer] Levemir Flextouch (Insulin Detemir) 100 Unit/1 Ml Insuln.pen 40 Unit SQ HS #10 RUN THROUGH VIA MARI [employer] [employer] Assessment/Pt Instructions [facility] Dr Wolfe this week to talk about pain meds and pseudocyst future drainage? Discharge Planning: <30 minutes discharge planning Discharge Instructions Discharge Diet: ADA Diet Discharge Physical Examination Vital Signs Vital Signs Date Time Temp Pulse Resp B/P (MAP) Pulse Ox O2 Delivery O2 Flow Rate FiO2 11/24/19 08:00 Room Air 11/24/19 07:38 36.9 67 18 100/65 (77) 95 General Appearance: No Apparent Distress, WD/WN Respiratory: Chest Non Tender, Lungs Clear, Normal Breath Sounds, No Accessory Muscle Use, No Respiratory Distress Cardiovascular: Regular Rate, Rhythm, No Edema, No Gallop, No JVD, No Murmur, Normal Peripheral Pulses Neurologic/Psychiatric: Alert, Oriented x3, No Motor/Sensory Deficits, Normal Mood/Affect Allergies: Coded Allergies: No Known Drug Allergies (Unverified , 01/14/19) Discharge Summary Date of Admission Nov 22, 2019 at 10:20 Date of Discharge Discharge Date: Nov 24, 2019 Admission Diagnosis Assessment: Chest pain r/o ACS Smoker Wheezes on lung exam Smoker ETOHic Chronic pancreatitis with pseudocyst formation Non-compliance with medical treatments and meds h/o hepatic thrombosis Leukocytosis with normal procalcitonin no evidence of bacterial infection requiring abx administration empirically Plan: Pain meds Cardiology and general surgery consultation Insulin Nebs Singulair Difficult situation given severe non-compliance with all medical treatments Discharge Diagnosis Assessment: Chest pain r/o ACS Smoker Wheezes on lung exam improved today on Nebs and ICS Smoker ETOHic Chronic pancreatitis with pseudocyst formation CT ordered by Dr Du Non-compliance with medical treatments and meds h/o hepatic thrombosis Leukocytosis with normal procalcitonin no evidence of bacterial infection requiring abx administration empirically Constipation on CT scan ordered laxatives Plan: Pain meds Cardiology and general surgery consultation Insulin Nebs Singulair CT scan Difficult situation given severe non-compliance with all medical treatments (1) Chest pain Status: Acute (2) Smoker (3) Rales (4) Chronic pancreatitis (5) Abdominal pain (6) Leukocytosis (7) Pseudocyst of pancreas (8) Uncontrolled diabetes mellitus Status: Acute (9) Noncompliance with medication regimen Status: Acute Clinical Quality Measures AMI/AHF: ASA po Prior to arrival: Yes DVT/VTE Risk/Contraindication: Risk Factor Score Per Nursin RFS Level Per Nursing on Admit: 4+=Very High JARED RODGERS DO Nov 24, 2019 11:08
[2019-11-24] MEDS ORDERED: OXYC-529 PO (11:13)
[2019-11-24 11:48] VITALS: BP 124/79
[2019-11-24 14:16] VITALS: BP 124/79
--- NOTE | 2019-11-24 17:30 | Cardiology Progress Note ---
Cardiology SOAP Progress Note Subjective: Still complaining of abdominal pain. Objective: I&O/Vital Signs 11/24/19 11/24/19 11/24/19 11/24/19 06:59 07:00 07:38 08:00 Temp 36.9 Pulse 70 67 Resp 18 B/P (MAP) 100/65 (77) Pulse Ox 92 95 O2 Delivery Room Air Room Air Room Air 11/24/19 11/24/19 11:48 14:16 Temp 36.5 36.5 Pulse 79 79 Resp 20 20 B/P (MAP) 124/79 (94) 124/79 Pulse Ox 96 96 O2 Delivery Room Air Room Air 11/24/19 00:00 Intake Total 1180 ml Balance 1180 ml Weight (Pounds): 144 Weight (Ounces): 2.0 Weight (Calculated Kilograms): 65.535014 Constitutional: appears stated age, AAO x 3; No apparent distress; well- developed, well-nourished Respiratory: chest is bilaterally symmetric, lungs clear to auscultation Cardiovascular: regular rate-rhythm, S1 and S2 Gastrointestional: soft, audible bowel sounds; No spleenomegaly Extremities: normal range of motion, non-tender, normal inspection; No clubbing, No cyanosis; no lower extremity edema bilateral; No significant edema Neurologic/Psychiatric: no motor/sensory deficits, alert, normal mood/affect, oriented x 3, power is 5/5 both on sides Skin: No rash, No ulcerations Results/Procedures: Labs Laboratory Tests 11/23/19 19:22: Glucometer 75 11/23/19 20:25: Glucometer 158H 11/24/19 03:26: Sodium Level 131L, Potassium Level 5.2H, Chloride Level 96L, Carbon Dioxide Level 25, Anion Gap 10, Blood Urea Nitrogen 16, Creatinine 0.75, Estimat Glomerular Filtration Rate > 60, BUN/Creatinine Ratio 21, Glucose Level 213H, Calcium Level 9.2, Corrected Calcium 9.3, Total Bilirubin 0.2, Aspartate Amino Transf (AST/SGOT) 26, Alanine Aminotransferase (ALT/SGPT) 27, Alkaline Phosphatase 127, Total Protein 6.7, Albumin 3.9 11/24/19 03:38: White Blood Count 9.7, Red Blood Count 4.34L, Hemoglobin 11.0L, Hematocrit 34L, Mean Corpuscular Volume 79L, Mean Corpuscular Hemoglobin 25, Mean Corpuscular Hemoglobin Concent 32, Red Cell Distribution Width 16.1H, Platelet Count 258, Mean Platelet Volume 11.1H, Neutrophils (%) (Auto) 66, Lymphocytes (%) (Auto) 24, Monocytes (%) (Auto) 8, Eosinophils (%) (Auto) 2, Basophils (%) (Auto) 0, Neutrophils # (Auto) 6.4, Lymphocytes # (Auto) 2.3, Monocytes # (Auto) 0.8, Eosinophils # (Auto) 0.2, Basophils # (Auto) 0.0 11/24/19 05:57: Glucometer 218H 11/24/19 11:01: Glucometer 298H A/P: Assessment/Dx: Chest pain, Abdominal pain, Severe diabetes/DKA Hypertension Tobaccoism Plan: Negative serial troponin x4, negative EKG. Unlikely to be acute coronary syndrome. According to the patient he has been worked up for cardiac etiology recently in [place]. Stress test was negative a few Months ago. Chest pain nonspecific etiology, atypical in presentation, unlikely to be cardiac, responsive only to fentanyl. No EKG changes, cardiac enzymes were negative. I reassured him at this time, instructed him on starting aspirin and recommend a stress test as an outpatient. He can follow with his outpatient physical medicine teacher. Echocardiogram done 10/25/2019 shows normal LV function with mild to moderate diastolic dysfunction. No other abnormalities. Diabetes mellitus, DKA, significantly elevated on admission, gradually improved. Managed by the primary team. Tobaccoism, active smoker, educated on smoking cessation Occasional alcohol use, educated on avoiding alcohol History of marijuana use. Educated on avoiding illicit drug use. Hypertension, patient does not take any medication at home and blood pressure is better at this point. Continue to monitor Musculoskeletal pain, generalized body ache Noncompliance with medication Thank you for your consultation. Please call me if you have any questions. Connor Helms MD, FACP, FACC, FSCAI, FHRS, CCDS Interventional Cardiology Cardiac Electrophysiology Vascular Medicine and Endovascular Interventions Clinical Quality Measures AMI/AHF: ASA po Prior to arrival: Yes Yareli HELMS MD Nov 24, 2019 17:30
== END 2019-11-24 14:16 | disposition home or self-care (01) | DRG 638 ==
LOC: EDUNIT# 07:37 → ER FS 07:39 → 4TH 10:20
PROVIDERS: ADMIT Family Medicine; ATTEND Internal Medicine
DX: E11.65 Type 2 diabetes mellitus with hyperglycemia (principal); K86.1 Other chronic pancreatitis; R07.89 Other chest pain; K86.3 Pseudocyst of pancreas; E87.1 Hypo-osmolality and hyponatremia; K59.00 Constipation, unspecified; E87.5 Hyperkalemia; Z91.14 Patient's other noncompliance with medication regimen; I10 Essential (primary) hypertension; J43.9 Emphysema, unspecified; K21.9 Gastro-esophageal reflux disease without esophagitis; G43.909 Migraine, unspecified, not intractable, without status migrainosus; F10.21 Alcohol dependence, in remission; F17.210 Nicotine dependence, cigarettes, uncomplicated; Z87.19 Personal history of other diseases of the digestive system
CPT/HCPCS: 36415; 71045; 74177; 80053; 82150; 82962; 83036; 83690; 83880; 84145; 84484; 85007; 85025; 85027; 85610; 85730; 93041; 93306; 94640; 94760

== ENCOUNTER 2020-04-26 00:39 | Emergency (ER) | payer SELFPAY ==
[~2020-04-26] VITALS: Ht 175 cm; Wt 68.0 kg
[~2020-04-26 00:39] MED LIST changes: +ASPI-983 PO; +FLUT12AE4 IH; +MONT10TA26 PO; +OXYC5TAB96 PO; +PANT40TA3 PO
--- NOTE | 2020-04-26 00:53 | ED Chest Pain ---
General Stated Complaint: CHEST PAIN Source: patient, EMS Exam Limitations: no limitations History of Present Illness Date Seen by Provider: Apr 26, 2020 Time Seen by Provider: 00:49 Initial Comments 49-year-old male presents via EMS with complaint of chest pain for the past 12 hours. Past medical history significant for coronary artery disease and diabet es. Patient currently on no medications. +smokes cigarettes and weed. CP - across his whole chest and constant for 12 hours. No associated symptoms: denies fever, chills, cough, soa or worsening w movement. Review of patient's medical history: Admission to [facility] October of this year with cardiology consultation. Patient at that time stated he has had chest pain for 6-12 months. Noted to be noncompliant with medical treatments. Patient had at that time stated he had had a heart catheterization and stress test at another hospital. Patient determined not to have cardiac etiology of his chest pain at that time, but was advised to follow-up with his want ad receiver. He was admitted for DKA Allergies and Home Medications Allergies Coded Allergies: No Known Drug Allergies (Unverified , 04/26/20) Home Medications Aspirin 81 Mg Tablet.dr, 81 MG PO DAILY Prescribed by: JARED RODGERS on 11/24/191106 Fluticasone/Salmeterol 12 Gm Hfa.aer.ad, 0 PUFF IH RTBID Prescribed by: JARED RODGERS on 11/24/191106 Insulin Aspart 300 Units/3 Ml Solution, 10 UNITS SQ AC #10 PENS RUN THROUGH [address] [employer] Prescribed by: JARED RODGERS on 11/24/191106 Insulin Detemir 100 Unit/1 Ml Insuln.pen, 20 UNIT SQ HS Prescribed by: JARED RODGERS on 11/24/19 110 Montelukast Sodium 10 Mg Tablet, 10 MG PO HS Prescribed by: JARED RODGERS on 11/24/191106 Oxycodone HCl 5 Mg Tablet, 10 MG PO TID PRN for PAIN-MODERATE (5-7) Prescribed by: JARED RODGERS on 11/24/19 111 Pantoprazole Sodium 40 Mg Tablet.dr, 40 MG PO DAILY Prescribed by: JARED RODGERS on 11/24/19 110 Patient Home Medication List Home Medication List Reviewed: Yes Review of Systems Review of Systems Constitutional: see HPI; No chills, No diaphoresis, No dizziness, No fever, No malaise; weight loss EENTM: No Symptoms Reported Respiratory: Denies Cough, Denies Shortness of Air Cardiovascular: See HPI, Chest Pain Gastrointestinal: Denies Abdominal Pain, Denies Nausea; Poor Appetite; Denies Vomiting Musculoskeletal: No back pain, No joint pain Skin: No change in color, No lesions, No lumps Past Isncqiy-Jfqrpu-Ntrlrc Hx Past Med/Social Hx: Reviewed Nursing Past Med/Soc Hx Patient Social History Alcohol Beverage of Choice: Whiskey Drug of Choice: marijuana Smoking Status: Current Everyday Smoker Type Used: Cigarettes 2nd Hand Smoke Exposure: Yes Recent Foreign Travel: No Contact w/Someone Who Travel: No Recent Hopitalizations: No Seasonal Allergies Seasonal Allergies: No Past Medical History Surgeries: No Respiratory: Yes Pneumonia, COPD, Emphysema Cardiac: Yes Hypertension Neurological: Yes Headaches /Migraines Genitourinary: Yes Renal Failure Gastrointestinal: Yes (Chronic Pancreatitis due to alcoholism.) Gastroesophageal Reflux, Quezada's Esophagus, Pancreatitis Musculoskeletal: No Endocrine: Yes Diabetes, Insulin dep HEENT: No Cancer: No Psychosocial: No Integumentary: No Blood Disorders: No Family Medical History Diabetes Physical Exam Vital Signs Vital Signs - First Documented 04/26/20 00:40 Temp 36.7 Pulse 74 Resp 18 B/P (MAP) 121/78 (92) Pulse Ox 96 O2 Delivery Room Air Capillary Refill : Height, Weight, BMI Height: 5'9.00" Weight: 144lbs. 2.0oz. 65.543673mk; 19.91 BMI Method:Stated General Appearance: No Apparent Distress, WD/WN HEENT: PERRL/EOMI, Normal ENT Inspection Neck: Full Range of Motion, Normal Inspection, Non Tender Respiratory: Chest Non Tender, Lungs Clear Cardiovascular: Regular Rate, Rhythm, No Edema, No Gallop, No JVD, Other (generalized tenderness entire chest) Gastrointestinal: Normal Bowel Sounds, No Organomegaly, Non Tender, Soft Extremity: Normal Capillary Refill, Normal Inspection, Non Tender, No Calf Tenderness Neurologic/Psychiatric: Alert, Oriented x3, No Motor/Sensory Deficits, Normal Mood/Affect Skin: Normal Color, Warm/Dry Progress/Results/Core Measures Results/Orders Lab Results Laboratory Tests Test 04/26/20 00:50 Range/Units White Blood Count 7.6 4.3-11.0 10^3/uL Red Blood Count 4.32 L 4.35-5.85 10^6/uL Hemoglobin 10.8 L 13.3-17.7 G/DL Hematocrit 33 L 40-54 % Mean Corpuscular Volume 77 L 80-99 FL Mean Corpuscular Hemoglobin 25 25-34 PG Mean Corpuscular Hemoglobin Concent 33 32-36 G/DL Red Cell Distribution Width 18.1 H 10.0-14.5 % Platelet Count 280 130-400 10^3/uL Mean Platelet Volume 10.1 7.4-10.4 FL Neutrophils (%) (Auto) 62 42-75 % Lymphocytes (%) (Auto) 28 12-44 % Monocytes (%) (Auto) 6 0-12 % Eosinophils (%) (Auto) 4 0-10 % Basophils (%) (Auto) 1 0-10 % Neutrophils # (Auto) 4.7 1.8-7.8 X 10^3 Lymphocytes # (Auto) 2.1 1.0-4.0 X 10^3 Monocytes # (Auto) 0.5 0.0-1.0 X 10^3 Eosinophils # (Auto) 0.3 0.0-0.3 10^3/uL Basophils # (Auto) 0.1 0.0-0.1 10^3/uL Sodium Level 133 L 135-145 MMOL/L Potassium Level 4.2 3.6-5.0 MMOL/L Chloride Level 99 98-107 MMOL/L Carbon Dioxide Level 22 21-32 MMOL/L Anion Gap 12 5-14 MMOL/L Blood Urea Nitrogen 15 7-18 MG/DL Creatinine 0.47 L 0.60-1.30 MG/DL Estimat Glomerular Filtration Rate > 60 BUN/Creatinine Ratio 32 Glucose Level 479 *H 70-105 MG/DL Calcium Level 8.5 8.5-10.1 MG/DL Corrected Calcium 8.7 8.5-10.1 MG/DL Magnesium Level 1.7 1.6-2.4 MG/DL Total Bilirubin < 0.2 0.1-1.0 MG/DL Aspartate Amino Transf (AST/SGOT) 63 H 5-34 U/L Alanine Aminotransferase (ALT/SGPT) 54 0-55 U/L Alkaline Phosphatase 137 H 40-136 U/L Troponin I < 0.30 <0.30 NG/ML Total Protein 6.7 6.4-8.2 GM/DL Albumin 3.8 3.2-4.5 GM/DL My Orders Orders - CHRIS URBAN DO Cbc With Automated Diff (04/26/20 00:42) Comprehensive Metabolic Panel (04/26/20 00:42) Troponin I Fs (04/26/20 00:42) Chest 1 View Ap/Pa Only (04/26/20 00:42) Ekg Tracing (04/26/20 00:42) Magnesium (04/26/20 00:42) Ed Iv/Invasive Line Start (04/26/20 00:53) Cbc With Automated Diff (04/26/20 01:06) Drug Screen Stat (Urine) (04/26/20 01:06) Nitroglycerin 0.4 Mg Btl 25's (Nitrostat (04/26/20 01:15) Ns Iv 1000 Ml (Sodium Chloride 0.9%) (04/26/20 01:30) Insulin (Regular) Human (Novolin R (Per (04/26/20 01:30) Fentanyl Injection (Sublimaze Injection (04/26/20 01:30) Insulin (Regular) Human (Novolin R (Per (04/26/20 01:25) Medications Given in ED Current Medications Medications Dose Ordered Sig/Yoselin Route Start Time Stop Time Status Last Admin Dose Admin Fentanyl Citrate 50 mcg ONCE ONCE IVP 04/26/20 01:30 04/26/20 01:31 DC 04/26/20 01:30 50 MCG Insulin Human Regular 10 unit ONCE ONCE SC 04/26/20 01:30 04/26/20 01:31 DC 04/26/20 01:31 10 UNIT Nitroglycerin 0.4 mg NEEDED PRN SL 04/26/20 01:15 04/26/20 01:11 0.4 MG Vital Signs/I&O 04/26/20 00:40 Temp 36.7 Pulse 74 Resp 18 B/P (MAP) 121/78 (92) Pulse Ox 96 O2 Delivery Room Air Progress Progress Note : Progress Note Patient with hyperglycemia, normal troponin and normal chemistries without signs of DKA. Patient states he has not had insulin "since the last time he was in the hospital". He states he has no job, no insurance and no money. States he has no medication and no ride home. Patient comfortable in the room with no one present, but holds his chest in pain when nurse or myself is interacting with him. Pain out of proportion to normal findings. Discharged after getting sugars under control and advised to see PCP early next week. Initial ECG Impression Time: 00:49 Initial ECG Rate: 70 Initial ECG Rhythm: Normal Sinus Initial ECG Intervals: Normal Initial ECG Comparisson: No Previous ECG Available Comment [facility] Diagonstic Imaging: Xray Plain Films/CT/US/NM/MRI: chest Comments no acute process. chronic lung changes. normal heart size, no infiltrate or effusion Reviewed: Reviewed by Me Departure Impression Primary Impression: Chest pain Qualified Codes: R07.9 - Chest pain, unspecified Additional Impressions: Hyperglycemia without ketosis Medically noncompliant Disposition: 01 HOME, SELF-CARE Condition: Stable Departure-Patient Inst. Decision time for Depature: 01:52 Referrals: MANE WOLFE MD (PCP/Family) Primary Care Physician Patient Instructions: Chest Pain (DC), Hyperglycemia, Adult Add. Discharge Instructions: Call Dr Wolfe's office to schedule a follow up appointment next week. You should ask Dr Wolfe about scheduling a stress test and assistance with getting your medication (Insulin) CHRIS URBAN DO Apr 26, 2020 00:53
[2020-04-26 00:56] LABS: HEMATOCRIT 33 % (40-54); HEMOGLOBIN 10.8 G/DL (13.3-17.7); MEAN CORPUSCULAR HEMOGLOBIN 25 PG (25-34); WHITE BLOOD COUNT 7.6 10^3/uL (4.3-11.0)
[2020-04-26 00:57] LABS: BASOPHILS # (AUTO) 0.1 10^3/uL (0.0-0.1); BASOPHILS % (AUTO) 1 % (0-10); EOSINOPHILS # (AUTO) 0.3 10^3/uL (0.0-0.3); EOSINOPHILS % (AUTO) 4 % (0-10); LYMPHOCYTES # (AUTO) 2.1 X 10^3 (1.0-4.0); LYMPHOCYTES % (AUTO) 28 % (12-44); MEAN CORPUSCULAR HGB CONC 33 G/DL (32-36); MEAN CORPUSCULAR VOLUME 77 FL (80-99); MEAN PLATELET VOLUME 10.1 FL (7.4-10.4); MONOCYTES # (AUTO) 0.5 X 10^3 (0.0-1.0); MONOCYTES % (AUTO) 6 % (0-12); NEUTROPHILS # (AUTO) 4.7 X 10^3 (1.8-7.8); NEUTROPHILS % (AUTO) 62 % (42-75); PLATELET COUNT 280 10^3/uL (130-400); RED CELL DISTRIBUTION WIDTH 18.1 % (10.0-14.5)
[2020-04-26] MEDS ORDERED: NITROGLYCERIN 0.4 MG SL TABS BTL 25'S SL PRN (01:15)
[2020-04-26 01:16] LABS: BUN/CREATININE RATIO 32; CARBON DIOXIDE 22 MMOL/L (21-32); CHLORIDE 99 MMOL/L (98-107); CREATININE SERUM 0.47 MG/DL (0.60-1.30); GFR ESTIMATED > 60; POTASSIUM 4.2 MMOL/L (3.6-5.0); SODIUM 133 MMOL/L (135-145)
[2020-04-26 01:17] LABS: ALANINE AMINOTRANSFERASE 54 U/L (0-55); ALBUMIN 3.8 GM/DL (3.2-4.5); ALKALINE PHOSPHATASE 137 U/L (40-136); BILIRUBIN,TOTAL < 0.2 MG/DL (0.1-1.0); CALCIUM 8.5 MG/DL (8.5-10.1); GLUCOSE 479 MG/DL (70-105); MAGNESIUM 1.7 MG/DL (1.6-2.4); TOTAL PROTEIN 6.7 GM/DL (6.4-8.2)
[2020-04-26] MEDS ORDERED: inSUlin (REGULAR) HUMAN 1 UNIT/0.01 ML (CHARGE PER UNIT) ONE (01:25)
[2020-04-26] MEDS ORDERED: fentaNYL INJECTION 100 MCG/2 ML AMP IVP ONE (01:30)
[2020-04-26] MEDS ORDERED: inSUlin (REGULAR) HUMAN 1 UNIT/0.01 ML (CHARGE PER UNIT) SC ONE (01:30)
[2020-04-26] MEDS ORDERED: NS IV 1000 ML 1,000 ML IV SCH (01:30)
[2020-04-26 02:09] VITALS: BP 118/74
--- NOTE | 2020-04-26 06:24 | Diagnostic Imaging Report ---
INDICATION: Chest pain Single AP view of the chest is obtained. Comparison is made to the study of 11/22/2019. Overall heart size and pulmonary vascularity remain within normal limits. There is continued bilateral air trapping with prominent interstitial markings likely related to COPD. No pneumothorax is identified. There is no evidence of significant pleural fluid. IMPRESSION: Chronic appearing lung disease without acute abnormality or adverse change is identified. Dictated by: Dictated on workstation # [id number]
== END 2020-04-26 02:19 | disposition home or self-care (01) ==
LOC: EDUNIT# 00:39 → ER FS 00:40
DX: R07.9 Chest pain, unspecified (principal); K21.9 Gastro-esophageal reflux disease without esophagitis; E11.65 Type 2 diabetes mellitus with hyperglycemia; N19 Unspecified kidney failure; F17.210 Nicotine dependence, cigarettes, uncomplicated; Z79.4 Long term (current) use of insulin; Z91.14 Patient's other noncompliance with medication regimen; Z79.82 Long term (current) use of aspirin
CPT/HCPCS: 36415; 71045; 80053; 82962; 83735; 84484; 85025; 93005

== ENCOUNTER 2020-05-11 23:19 | Emergency (ER) | payer SELFPAY ==
[~2020-05-11 23:19] MED LIST changes: +ASPI-1238 PO; -ASPI-983 PO
[2020-05-11 23:37] LABS: HEMATOCRIT 33 % (40-54); HEMOGLOBIN 10.6 G/DL (13.3-17.7); MEAN CORPUSCULAR HEMOGLOBIN 26 PG (25-34); MEAN CORPUSCULAR HGB CONC 26 G/DL (32-36); MEAN CORPUSCULAR VOLUME 79 FL (80-99); WHITE BLOOD COUNT 9.6 10^3/uL (4.3-11.0)
[2020-05-11 23:38] LABS: BASOPHILS # (AUTO) 0.1 10^3/uL (0.0-0.1); BASOPHILS % (AUTO) 1 % (0-10); EOSINOPHILS # (AUTO) 0.5 10^3/uL (0.0-0.3); EOSINOPHILS % (AUTO) 5 % (0-10); LYMPHOCYTES % (AUTO) 32 % (12-44); MEAN PLATELET VOLUME 10.2 FL (7.4-10.4); MONOCYTES # (AUTO) 0.7 X 10^3 (0.0-1.0); MONOCYTES % (AUTO) 7 % (0-12); NEUTROPHILS # (AUTO) 5.3 X 10^3 (1.8-7.8); NEUTROPHILS % (AUTO) 56 % (42-75); PLATELET COUNT 261 10^3/uL (130-400)
--- NOTE | 2020-05-11 23:41 | ED Cardiac General ---
History of Present Illness General Chief Complaint: Chest Pain Stated Complaint: CHEST PAIN Nursing Triage Note: Pt [facility] in [facility] with complaints of chest pain, throat pain, and nausea Source: patient, EMS, RN notes reviewed, EMS notes reviewed, old records Exam Limitations: no limitations History of Present Illness Date Seen by Provider: May 11, 2020 Time Seen by Provider: 23:25 Initial Comments This patient presents to the emergency department is a 49-year-old male with a long history of ER visits complaints of chest pain. Patient's been seen at this facility multiple times and also neighboring facilities. Patient was actually seen at a facility in [facility] last night for the same complaint. Complaint of chest pain and throat pain. Patient's EKG is unchanged from previous evaluations. Patient does have a history of drug abuse was states he only smokes marijuana now. Patient states that they refuse to give him pain medicine last night in the emergency department and discharged him home after evaluation on his heart. Patient comes to the emergency department tonight with the same complaint. States it is unchanged. EMS states that they ran on emergency call him this patient 4 times in the past couple weeks. We'll do medical evaluation treatment is needed. This patient does not appear to be acutely sick or having acute chest pain of a cardiac nature at this time. Timing/Duration: intermittent Severity: moderate Location: central Activities at Onset: none Prior CP/Workup: non-cardiac NTG SL GLUTEN SETTLING TENDER: Yes ASA po GLUTEN SETTLING TENDER: Yes Associated Systoms: Chest Pain Allergies and Home Medications Allergies Coded Allergies: No Known Drug Allergies (Unverified , 04/26/20) Home Medications Aspirin 81 Mg Tablet., 81 MG PO DAILY Prescribed by: JARED RODGERS on 11/24/191106 Fluticasone/Salmeterol 12 Gm Hfa.aer.ad, 0 PUFF IH RTBID Prescribed by: JARED RODGERS on 11/24/191106 Insulin Aspart 300 Units/3 Ml Solution, 10 UNITS SQ AC #10 PENS RUN THROUGH [address]B [employer]AN Prescribed by: JARED RODGERS on 11/24/191106 Insulin Detemir 100 Unit/1 Ml Insuln.pen, 20 UNIT SQ HS Prescribed by: JARED RODGERS on 11/24/191106 Montelukast Sodium 10 Mg Tablet, 10 MG PO HS Prescribed by: JARED RODGERS on 3/28/20 1107 Oxycodone HCl 5 Mg Tablet, 10 MG PO TID PRN for PAIN-MODERATE (5-7) Prescribed by: JARED RODGERS on 11/24/19 1113 Pantoprazole Sodium 40 Mg Tablet.dr, 40 MG PO DAILY Prescribed by: JARED RODGERS on 11/24/19 1107 Patient Home Medication List Home Medication List Reviewed: Yes Review of Systems Review of Systems Constitutional: No no symptoms reported, No see HPI, No chills, No diaphoresis, No dizziness, No fever, No malaise, No weakness, No weight gain, No weight loss, No other EENTM: No No Symptoms Reported, No See HPI, No Blurred Vision, No Double Vision, No Eye Pain, No Eye Tearing, No Ear Drainage, No Ear Pain, No Mouth Pain, No Mouth Swelling, No Nose Congestion, No Nose Pain, No Throat Pain, No Throat Swelling, No Other Respiratory: Denies No Symptoms Reported, Denies See HPI, Denies Cough, Denies Orthopnea, Denies Shortness of Air, Denies SOA With Exertion, Denies SOA at Rest, Denies Stridor, Denies Wheezing, Denies Other Cardiovascular: Denies No Symptoms Reported; See HPI, Chest Pain; Denies Edema, Denies Irregular Heart Rate, Denies Lightheadedness, Denies Palpitations, Denies Syncope, Denies Other Gastrointestinal: Denies No Symptoms Reported, Denies See HPI, Denies Abdomen Distended, Denies Abdominal Pain, Denies Blood Streaked Stools, Denies Constipated, Denies Diarrhea, Denies Difficulty Swallowing, Denies Nausea, Denies Poor Appetite, Denies Poor Fluid Intake, Denies Rectal Bleeding, Denies Vomiting, Denies Other Genitourinary: Denies No Symptoms Reported, Denies See HPI, Denies Burning, Denies Discharge, Denies Drainage, Denies Frequency, Denies Flank Pain, Denies Hematuria, Denies Incontinence, Denies Pain, Denies Urgency, Denies Other Musculoskeletal: No no symptoms reported, No see HPI, No back pain, No gout, No joint pain, No joint swelling, No muscle pain, No muscle stiffness, No muscle cramps, No muscle twitching, No muscle weakness, No neck pain, No other Psychiatric/Neurological: Denies No Symptoms Reported, Denies See HPI, Denies Anxiety, Denies Depressed, Denies Emotional Problems, Denies Headache, Denies Numbness, Denies Paresthesia, Denies Pre-Existing Deficit, Denies Seizure, Denies Tingling, Denies Tremors, Denies Weakness, Denies Other Endocrine: Denies No Symptoms Reported, Denies See HPI, Denies Excessive Sweating, Denies Flushing, Denies Intolerance to Cold, Denies Intolerance to Heat, Denies Increased Hunger, Denies Increased Thrist, Denies Increased Urine, Denies Unexplained Weight Gain, Denies Unexplaned Weight Loss, Denies Other All Other Systems Reviewed Negative Unless Noted: Yes Past Aqszfyb-Fbdmqi-Mfxzfe Hx Patient Social History Alcohol Beverage of Choice: Whiskey Drug of Choice: marijuana Type Used: Cigarettes 2nd Hand Smoke Exposure: Yes Recent Foreign Travel: No Contact w/Someone Who Travel: No Recent Infectious Disease Expo: No Recent Hopitalizations: No Seasonal Allergies Seasonal Allergies: No Past Medical History Surgeries: No Respiratory: Yes Pneumonia, COPD, Emphysema Cardiac: Yes Hypertension Neurological: Yes Headaches /Migraines Genitourinary: Yes Renal Failure Gastrointestinal: Yes (Chronic Pancreatitis due to alcoholism.) Gastroesophageal Reflux, Quezada's Esophagus, Pancreatitis Musculoskeletal: No Endocrine: Yes Diabetes, Insulin dep HEENT: No Cancer: No Psychosocial: No Integumentary: No Blood Disorders: No Family Medical History Diabetes Physical Exam Vital Signs Vital Signs - First Documented 05/11/20 23:20 Temp 36.8 Pulse 78 Resp 16 B/P (MAP) 103/67 (79) Pulse Ox 96 O2 Delivery Room Air Capillary Refill : Less Than 3 Seconds Height, Weight, BMI Height: 5'9.00" Weight: 144lbs. 2.0oz. 65.054347ew; 22.00 BMI Method:Stated General Appearance: No Apparent Distress, WD/WN Respiratory: Chest Non Tender, Lungs Clear, Normal Breath Sounds, No Accessory Muscle Use, No Respiratory Distress Cardiovascular: Regular Rate, Rhythm, No Edema, No Gallop, No JVD, No Murmur, Normal Peripheral Pulses Gastrointestinal: Normal Bowel Sounds, No Organomegaly, No Pulsatile Mass, Non Tender Extremity: Normal Capillary Refill, Normal Inspection, Normal Range of Motion, Non Tender, No Calf Tenderness, No Pedal Edema Neurologic/Psychiatric: Alert, Oriented x3, No Motor/Sensory Deficits, Normal Mood/Affect Progress/Results/Core Measures Results/Orders Lab Results Laboratory Tests Test 05/11/20 23:30 05/12/20 00:25 Range/Units White Blood Count 9.6 4.3-11.0 10^3/uL Red Blood Count 4.15 L 4.35-5.85 10^6/uL Hemoglobin 10.6 L 13.3-17.7 G/DL Hematocrit 33 L 40-54 % Mean Corpuscular Volume 79 L 80-99 FL Mean Corpuscular Hemoglobin 26 25-34 PG Mean Corpuscular Hemoglobin Concent 26 L 32-36 G/DL Red Cell Distribution Width 18.5 H 10.0-14.5 % Platelet Count 261 130-400 10^3/uL Mean Platelet Volume 10.2 7.4-10.4 FL Immature Granulocyte % (Auto) 0.4 Neutrophils (%) (Auto) 56 42-75 % Lymphocytes (%) (Auto) 32 12-44 % Monocytes (%) (Auto) 7 0-12 % Eosinophils (%) (Auto) 5 0-10 % Basophils (%) (Auto) 1 0-10 % Neutrophils # (Auto) 5.3 1.8-7.8 X 10^3 Lymphocytes # (Auto) 3.0 1.0-4.0 X 10^3 Monocytes # (Auto) 0.7 0.0-1.0 X 10^3 Eosinophils # (Auto) 0.5 H 0.0-0.3 10^3/uL Basophils # (Auto) 0.1 0.0-0.1 10^3/uL Immature Granulocyte # (Auto) 0.0 0.0-0.1 Percent Immature Platelet Fraction 2.5 0.0-7.6 Prothrombin Time 12.9 12.2-14.7 SEC INR Comment 0.9 0.8-1.4 Sodium Level 133 L 135-145 MMOL/L Potassium Level 5.0 3.6-5.0 MMOL/L Chloride Level 99 98-107 MMOL/L Carbon Dioxide Level 22 21-32 MMOL/L Anion Gap 12 5-14 MMOL/L Blood Urea Nitrogen 14 7-18 MG/DL Creatinine 0.45 L 0.60-1.30 MG/DL Estimat Glomerular Filtration Rate > 60 BUN/Creatinine Ratio 31 Glucose Level 357 H 70-105 MG/DL Calcium Level 9.0 8.5-10.1 MG/DL Corrected Calcium 9.2 8.5-10.1 MG/DL Total Bilirubin < 0.2 0.1-1.0 MG/DL Aspartate Amino Transf (AST/SGOT) 45 H 5-34 U/L Alanine Aminotransferase (ALT/SGPT) 44 0-55 U/L Alkaline Phosphatase 128 40-136 U/L Troponin I < 0.30 <0.30 NG/ML Pro-B-Type Natriuretic Peptide 36.0 <75.0 PG/ML Total Protein 6.6 6.4-8.2 GM/DL Albumin 3.8 3.2-4.5 GM/DL Urine Color YELLOW Urine Clarity CLEAR Urine pH 6.0 5-9 Urine Specific Zamora 1.025 H 1.016-1.022 Urine Protein NEGATIVE NEGATIVE Urine Glucose (UA) 2+ H NEGATIVE Urine Ketones NEGATIVE NEGATIVE Urine Nitrite NEGATIVE NEGATIVE Urine Bilirubin NEGATIVE NEGATIVE Urine Urobilinogen 0.2 < = 1.0 MG/DL Urine Leukocyte Esterase NEGATIVE NEGATIVE Urine RBC (Auto) NEGATIVE NEGATIVE Urine RBC NONE /HPF Urine WBC NONE /HPF Urine Squamous Epithelial Cells 2-5 /HPF Urine Crystals NONE /LPF Urine Bacteria NEGATIVE /HPF Urine Casts NONE /LPF Urine Mucus MODERATE H /LPF Urine Culture Indicated NO Urine Opiates Screen POSITIVE H NEGATIVE Urine Oxycodone Screen NEGATIVE NEGATIVE Urine Methadone Screen NEGATIVE NEGATIVE Urine Propoxyphene Screen NEGATIVE NEGATIVE Urine Barbiturates Screen NEGATIVE NEGATIVE Ur Tricyclic Antidepressants Screen NEGATIVE NEGATIVE Urine Phencyclidine Screen NEGATIVE NEGATIVE Urine Amphetamines Screen NEGATIVE NEGATIVE Urine Methamphetamines Screen NEGATIVE NEGATIVE Urine Benzodiazepines Screen NEGATIVE NEGATIVE Urine Cocaine Screen NEGATIVE NEGATIVE Urine Cannabinoids Screen POSITIVE H NEGATIVE My Orders Orders - TAMARA ZUNIGA MD Ed Iv/Invasive Line Start (05/11/20 23:31) Cbc With Automated Diff (05/11/20 23:31) Comprehensive Metabolic Panel (05/11/20 23:31) Urinalysis (05/11/20 23:31) Ekg Tracing (05/11/20 23:31) Chest 1 View Ap/Pa Only (05/11/20 23:31) Drug Screen Stat (Urine) (05/11/20 23:31) Antacid Suspension (Mylanta Suspension (05/11/20 23:45) Lidocaine 2% Viscous 15 Ml (Xylocaine Vi (05/11/20 23:45) Ondansetron Injection (Zofran Injectio (05/11/20 23:45) Troponin I Fs (05/12/20 00:02) Probnp Fs (05/12/20 00:02) Protime With Inr (05/12/20 00:02) Medications Given in ED Current Medications Medications Dose Ordered Sig/Yoselin Route Start Time Stop Time Status Last Admin Dose Admin Al Hydrox/Mg Hydrox/Simethicone 30 ml ONCE ONCE PO 05/11/20 23:45 05/11/20 23:46 DC 05/11/20 23:45 30 ML Lidocaine HCl 5 ml ONCE ONCE PO 05/11/20 23:45 05/11/20 23:46 DC 05/11/20 23:45 5 ML Ondansetron HCl 4 mg ONCE ONCE IVP 05/11/20 23:45 05/11/20 23:46 DC 05/11/20 23:45 4 MG Vital Signs/I&O 05/11/20 23:20 Temp 36.8 Pulse 78 Resp 16 B/P (MAP) 103/67 (79) Pulse Ox 96 O2 Delivery Room Air 05/12/20 00:00 Intake Total 500 ml Balance 500 ml Blood Pressure Mean: 79 Progress Progress Note : Time: 00:47 Progress Note Negative evaluation in the emergency department. Patient states that this is noncardiac chest pain. This is his chronic pain. Patient was seen at [facility] last night given a prescription for hydrocodone doxycycline and omeprazole. Patient comes to this facility again asking for chronic pain medications. Patient has a history of noncompliance patient was seen here on 04/26 with a similar complaint and again at that time was asking for narcotic pain medication. Patient appears to have some drug seeking behavior. I did discuss at length with patient about options and advised the patient follow- up with his primary care physician and discuss possible pain management. Patient be discharged home. Initial ECG Impression Date: May 11, 2020 Initial ECG Impression Time: 23:24 Initial ECG Rate: 79 Initial ECG Rhythm: Normal Sinus Initial ECG Impression: Normal, Nonspecific Changes Initial ECG Comparisson: Unchanged Departure Impression Primary Impression: Chronic chest pain Additional Impressions: Diabetes Drug-seeking behavior Disposition: 01 HOME, SELF-CARE Condition: Stable Departure-Patient Inst. Decision time for Depature: 00:49 Referrals: MANE POTTS MD (PCP) Primary Care Physician Patient Instructions: Chronic Pain Add. Discharge Instructions: Continue with all home medications. Follow-up with your primary care physician and asked for referral for chronic pain management if needed. Fill prescriptions as given T last night at your ER visit which include hydrocodone for pain. Continue with your home medications for your diabetes. All discharge instructions reviewed with patient and/or family. Voiced understanding. TAMARA ZUNIGA MD May 11, 2020 23:41
[2020-05-11] MEDS ORDERED: ONDANSETRON 4 MG/2 ML (SDV) Z0FRAN IVP ONE (23:45)
[2020-05-11] MEDS ORDERED: ANTACID SUSP 30 ML UDC (MYLANTA) PO ONE (23:45)
[2020-05-11] MEDS ORDERED: LIDOCAINE 2% VISCOUS 15 ML UDC PO ONE (23:45)
[2020-05-11 23:59] LABS: ALANINE AMINOTRANSFERASE 44 U/L (0-55); ALBUMIN 3.8 GM/DL (3.2-4.5); ALKALINE PHOSPHATASE 128 U/L (40-136); BILIRUBIN,TOTAL < 0.2 MG/DL (0.1-1.0); BUN/CREATININE RATIO 31; CARBON DIOXIDE 22 MMOL/L (21-32); CHLORIDE 99 MMOL/L (98-107); CREATININE SERUM 0.45 MG/DL (0.60-1.30); GFR ESTIMATED > 60; GLUCOSE 357 MG/DL (70-105); SODIUM 133 MMOL/L (135-145); TOTAL PROTEIN 6.6 GM/DL (6.4-8.2)
[2020-05-12 00:16] LABS: INR 0.9 (0.8-1.4); PROTHROMBIN TIME PATIENT 12.9 SEC (12.2-14.7)
[2020-05-12 00:34] LABS: CLARITY,URINE CLEAR; COLOR,URINE YELLOW
[2020-05-12 00:35] LABS: BILIRUBIN,URINE NEGATIVE (NEGATIVE); GLUCOSE, URINE (UA) 2+ (NEGATIVE); KETONES,URINE NEGATIVE (NEGATIVE); LEUKOCYTE ESTERASE ,URINE NEGATIVE (NEGATIVE); NITRITE,URINE NEGATIVE (NEGATIVE); PROTEIN,URINE NEGATIVE (NEGATIVE)
[2020-05-12 00:37] LABS: BACTERIA,URINE NEGATIVE /HPF
[2020-05-12 00:44] LABS: AMPHETAMINE SCREEN, URINE NEGATIVE (NEGATIVE); BARBITURATE SCREEN URINE NEGATIVE (NEGATIVE); BENZODIAZEPINES SCREEN URINE NEGATIVE (NEGATIVE); CANNABINOID SCREEN, URINE POSITIVE (NEGATIVE); COCAINE SCREEN URINE NEGATIVE (NEGATIVE); METHADONE STAT NEGATIVE (NEGATIVE); METHAMPHETAMINE SCREEN URINE S NEGATIVE (NEGATIVE); OPIATE SCREEN URINE POSITIVE (NEGATIVE); OXYCODONE STAT NEGATIVE (NEGATIVE); PROPOXYPHENE STAT NEGATIVE (NEGATIVE); TRICYCLIC ANTIDEPRESSANTS SCRE NEGATIVE (NEGATIVE)
[2020-05-12 00:56] VITALS: BP 111/81
--- NOTE | 2020-05-12 07:14 | Diagnostic Imaging Report ---
EXAMINATION: Chest 1 view HISTORY: Chest pain. COMPARISON: 04/26/2020. FINDINGS: The lung volumes are normal. No focal consolidation is seen. Coarse interstitial opacities are seen throughout the lungs. No large pleural effusion or pneumothorax is seen. The cardiomediastinal silhouette is normal in size and contour. No acute osseous abnormality is seen. IMPRESSION: 1. Coarse interstitial opacities throughout the lungs, favored to represent chronic fibrotic changes. No focal consolidation. Dictated by: Dictated on workstation # [id number]
== END 2020-05-12 01:05 | disposition home or self-care (01) ==
LOC: EDUNIT# 23:19 → ER FS 23:21
DX: R07.9 Chest pain, unspecified (principal); E11.9 Type 2 diabetes mellitus without complications; K21.9 Gastro-esophageal reflux disease without esophagitis; N19 Unspecified kidney failure; Z76.5 Malingerer [conscious simulation]; Z77.22 Contact with and (suspected) exposure to environmental tobacco smoke (acute) (chronic); Z79.4 Long term (current) use of insulin; Z79.82 Long term (current) use of aspirin
CPT/HCPCS: 36415; 71045; 80053; 80306; 81000; 83880; 84484; 85025; 85610; 93005